=== PATIENT | female | born 1960 | race Caucasian/White ===

== ENCOUNTER → 2016-07-18 | Outpatient (CLI) | payer BC ==
[~2016-07-18] MED LIST: /WARF25TA PO; CALC500T49 PO; COUM2.5T11 PO; FERR325T OR; FOLI1TAB2 PO; MULTTAB26 PO; OMEP20CA3 PO; PERC5TAB6 PO; PERC5TAB8 OR; PERC7.5T8 OR; PERCOCET PO; SERT-141 PO; TYLE325T5 PO; TYLENOL PO; VALT1TAB PO; VITA50003 PO; VITAMIN D2 PO; ZYRT10TA2 PO; [UNRECOGNIZED DRUG - OTHER] PO; [UNRECOGNIZED DRUG - OTHER] PO
--- NOTE | 2016-07-18 15:32 | REPMRS ---
Patient History The patient states she had a clinical breast exam in 11/2015. Patient is postmenopausal. Family history of breast cancer in paternal aunt at age 50 or over and endometrial cancer in maternal aunt at age 50 or over. Digital Woman Screen Mammo: July 18, 2016 - Exam #: [id number] Bilateral CC and MLO view(s) were taken. Technologist: Fadumo Bonilla Technologist Prior study comparison: March 09, 2011, digital bilateral screening mammo performed at [facility]. April 25, 2006, bilateral screening mammogram performed at [facility]. FINDINGS: The breast tissue is almost entirely fat. There has been no change in the appearance of the mammogram from the prior studies. There is no interval development of dominant mass, architectural distortion, or clustered microcalcification typical of malignancy. ASSESSMENT: BI-RADS/ACR category 1 mammogram. Negative. Recommendation Routine screening mammogram of both breasts in 1 year (for women over age 40). This mammogram was interpreted with the aid of an FDA-approved computer-aided dectection system. Electronically Signed By: Rafael Seymour MD 07/18/16 [id number]
== END ==
LOC: M WHC 14:44
PROVIDERS: ATTEND Nurse Practitioner Adult Health
DX: Z12.31 Encounter for screening mammogram for malignant neoplasm of breast (principal)

== ENCOUNTER → 2016-08-29 | Outpatient (CLI) | payer BC ==
[~2016-08-29] MED LIST changes: -COUM2.5T11 PO; +COUM2.5T17 PO; -FOLI1TAB2 PO; +FOLI1TAB4 PO; +PERC5TAB12 PO; -PERC5TAB6 PO; +VITA1CAP40 PO; -VITA50003 PO
--- NOTE | 2016-08-29 12:47 | REP ---
Clinical: Trauma. Fall. Technique: AP and lateral views of the humerus. Findings: There is a nondisplaced fracture involving the greater tuberosity at the humeral head best identified on the AP view. Remainder of the humerus appears intact. Impression: Nondisplaced fracture involving the greater tuberosity of the humeral head. Signed by Cesar Ireland MD 08/29/2016 12:39 P
--- NOTE | 2016-08-29 12:48 | REP ---
Clinical: Trauma. Fall. Technique: Internal rotation, external rotation, and Y view. Findings: No definite acute fracture or dislocation is appreciated. However, subtle nondisplaced injury involving the greater tuberosity best identified on external view cannot be excluded. Correlation is recommended. The acromioclavicular joint is intact the glenoid appears normal. Impression: Cannot exclude subtle nondisplaced fracture involving the greater tuberosity of the proximal humeral head. Signed by Cesar Ireland MD 08/29/2016 12:39 P
== END ==
LOC: M LRY 11:59
PROVIDERS: ATTEND Nurse Practitioner Family
DX: S42.254A Nondisplaced fracture of greater tuberosity of right humerus, initial encounter for closed fracture (principal); X58.XXXA Exposure to other specified factors, initial encounter; Y93.9 Activity, unspecified; Y92.9 Unspecified place or not applicable; Y99.8 Other external cause status

== ENCOUNTER → 2018-07-14 | Outpatient (REF) | payer BC ==
[~2018-07-14] MED LIST changes: -/WARF25TA PO; +COUM1TAB18 PO; +FOLI1TAB11 PO; -FOLI1TAB4 PO; +OXYC1TAB23 PO; -PERCOCET PO; -VITA1CAP40 PO; +VITA50005 PO; +ZYRT10CA5 PO; -ZYRT10TA2 PO
== END ==
LOC: M LAB REF 16:16
PROVIDERS: ATTEND Nurse Practitioner Adult Health
DX: L40.53 Psoriatic spondylitis (principal)

== ENCOUNTER → 2018-09-29 | Outpatient (REF) | payer BC | LOC: M LAB REF 12:34 | PROVIDERS: ATTEND Nurse Practitioner Adult Health | DX: M45.0 Ankylosing spondylitis of multiple sites in spine (principal) ==

== ENCOUNTER → 2019-07-22 | Outpatient (REF) | payer BC ==
[2019-07-22 17:16] LABS: FERRITIN 9 NG/ML (8-252); IRON (FE) 28 UG/DL (50-170); PERCENT SATURATION 6.5 % (13.2-45.0); TOTAL IRON BINDING CAPACITY 432 UG/DL (250-450); TOTAL PROTEIN 7.3 GM/DL (6.4-8.2)
[2019-07-23 11:57] LABS: ALBUMIN 4.28 GM/DL (3.29-5.55); ALBUMIN % 59.4 % (55.8-66.1); ALPHA-1-GLOBULIN % 4.2 % (2.9-4.9); ALPHA-2-GLOBULINS 0.67 GM/DL (0.42-0.99); ALPHA-2-GLOBULINS % 9.3 % (7.1-11.8); BETA-1-GLOBULINS 0.53 GM/DL (0.28-0.60); BETA-1-GLOBULINS % 7.4 % (4.7-7.2); BETA-2-GLOBULINS 0.35 GM/DL (0.19-0.55); BETA-2-GLOBULINS % 4.8 % (3.2-6.5); GAMMA GLOBULIN % 14.9 % (11.1-18.8); GAMMA GLOBULINS 1.07 GM/DL (0.65-1.58)
== END ==
LOC: M LAB REF 16:17
PROVIDERS: ATTEND Nurse Practitioner Adult Health
DX: E87.6 Hypokalemia (principal); D50.9 Iron deficiency anemia, unspecified

== ENCOUNTER 2019-08-26 11:19 | Outpatient (CLI) | payer BC ==
[~2019-08-26] VITALS: Ht 152.4 cm; Wt 95.5 kg
[2019-08-26] VITALS (7 sets, daily range): BP systolic 140–150; BP diastolic 62–78
[2019-08-26] MEDS ORDERED: IRON SUCROSE 25 MG in NS 25 ML IV ONE (12:00)
[2019-08-26] MEDS ORDERED: IRON SUCROSE 475 MG in NS 250 ML IV ONE (13:00)
[2019-09-02] MEDS ORDERED: AMLO1TAB25 PO (14:33)
[2019-09-02] MEDS ORDERED: SERT50TA29 PO (14:33)
[2019-09-02] MEDS ORDERED: METH2.5T48 PO (15:34)
[2019-09-02] MEDS ORDERED: NORV5TAB PO (15:34)
[2019-09-02] MEDS ORDERED: SERT-138 PO (15:34)
[2019-09-02] MEDS ORDERED: SULF1TAB30 PO (15:34)
[2019-09-02] MEDS ORDERED: HYDR12.55 PO (15:34)
[2019-09-02] MEDS ORDERED: HUMI20KI SC (15:34)
[2019-09-02] MEDS ORDERED: VITA500064 PO (15:34)
[2019-09-02] MEDS ORDERED: IBAN150T6 PO (15:34)
[2019-09-02] MEDS ORDERED: IRON27TA2 PO (15:34)
== END 2019-08-26 16:50 | disposition home or self-care (01) ==
LOC: M INFU 11:19
PROVIDERS: ATTEND Nurse Practitioner Adult Health
DX: D50.9 Iron deficiency anemia, unspecified (principal)
CPT/HCPCS: 96365; 96366; 96376; J1756

== ENCOUNTER → 2019-09-04 | Outpatient (CLI) | payer BC ==
[~2019-09-04] MED LIST changes: +AMLO1TAB25 PO; +HUMI20KI SC; +HYDR12.55 PO; +IBAN150T6 PO; +IRON27TA2 PO; +METH2.5T48 PO; +NORV5TAB PO; +SERT-138 PO; +SERT50TA29 PO; +SULF1TAB30 PO; +VITA500064 PO
== END ==
LOC: M LABSMTC 10:43
PROVIDERS: ATTEND Anesthesiology
DX: Z01.818 Encounter for other preprocedural examination (principal); Z11.59 Encounter for screening for other viral diseases
CPT/HCPCS: C9803; U0003

== ENCOUNTER 2019-09-08 11:53 | Day surgery (SDC) | payer BC ==
[~2019-09-08] VITALS: Ht 152.4 cm; Wt 98.3 kg
[~2019-09-08 11:53] MED LIST changes: +AMLO10TA5 PO; -AMLO1TAB25 PO; +LR 1,000 ML IV ONE; +ceFAZolin SOD 2 GM in IV 1 EA IV ONE
[2019-09-08] MEDS ORDERED: dexameTHASONE 10MG/1ML VIAL PRES.FREE (J1100 PER 1MG) ONE (11:54)
[2019-09-08] MEDS ORDERED: EPINEPHrine INJ 1 MG/ML 1ML AMP ONE (11:54)
[2019-09-08] MEDS ORDERED: ROPIvacaine 0.5% 30ML INJECTION (J2795 PER 1MG) ONE (11:54)
[2019-09-08] MEDS ORDERED: MIDAZOLAM INJ 2MG/2ML VIAL (J2250 PER 1MG) As Ordered ONE ×2 (12:52→13:38)
[2019-09-08] MEDS ORDERED: fentaNYL 100 MCG/2 ML INJECTION (J3010) As Ordered ONE (12:52)
[2019-09-08] MEDS ORDERED: fentaNYL 100 MCG/2 ML INJECTION (J3010) IV ONE (13:30)
[2019-09-08] MEDS ORDERED: MIDAZOLAM INJ 2MG/2ML VIAL (J2250 PER 1MG) IV ONE (13:30)
[2019-09-08] MEDS ORDERED: LIDOCAINE 2% 100MG/5ML SDV (FOR ANES.) As Ordered ONE (13:38)
[2019-09-08] MEDS ORDERED: ROCURONIUM BROMIDE 50 MG/5 ML VIAL As Ordered ONE (13:38)
[2019-09-08] MEDS ORDERED: SUGAMMADEX SODIUM 500 MG/5 ML VIAL (BRIDION) As Ordered ONE (13:38)
[2019-09-08] MEDS ORDERED: ONDANSETRON 4MG/2ML VIAL As Ordered ONE (13:38)
[2019-09-08] MEDS ORDERED: fentaNYL 250 MCG/5 ML INJECTION (J3010) As Ordered ONE (13:38)
[2019-09-08] MEDS ORDERED: propofoL 200 MG/20 ML VIAL As Ordered ONE ×2 (13:38→16:16)
[2019-09-08] MEDS ORDERED: dexameTHASONE 4 MG/ML 1ML VIAL (J1100 PER 1MG) As Ordered ONE (13:38)
[2019-09-08] MEDS ORDERED: METOCLOPRAMIDE INJ 10MG/2ML VIAL (J2765 PER 1) As Ordered ONE (13:38)
[2019-09-08] MEDS ORDERED: fentaNYL 100 MCG/2 ML INJECTION (J3010) IV PRN (17:00)
[2019-09-08] MEDS ORDERED: ONDANSETRON 4MG/2ML VIAL IV PRN (17:00)
[2019-09-08] MEDS ORDERED: oxyCODONE 5MG TAB PO PRN (17:00)
[2019-09-08] MEDS ORDERED: LR 1,000 ML IV SCH ×2 (17:00)
[2019-09-08 19:47] VITALS: BP 140/70
--- NOTE | 2019-09-09 03:48 | REP ---
C-ARM VIEWS RIGHT FOOT: Multiple C-arm views right foot performed during placement of metallic plate and screws in the 5th metatarsal. The structures are well aligned. 37 seconds fluoroscopy time utilized. Electronically Signed by Phong Garcia MD 09/09/2019 10:57 P
--- NOTE | 2019-09-15 13:25 | RO ---
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 POSTOPERATIVE DIAGNOSIS: Right 5th metatarsal partial union. PROCEDURES: 1. Right 5th metatarsal open reduction internal fixation. 2. Right calcaneal bone graft. 3. Use of the mini C-arm. SURGEON: Sarah Duran MD ASSIST: JESSICA Alvarez ANESTHESIA: General endotracheal with popliteal nerve block. ESTIMATED BLOOD LOSS: 25 mL. COMPLICATIONS: None. CONDITION: Stable to recovery. 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 Patient was given option for surgery after failing conservative measures. Risks and benefits, include, but are not limited to, infection, damage to nerves and blood vessels, continued pain and stiffness, need for additional procedures. Informed consent was obtained in the office. DESCRIPTION OF PROCEDURE: Patient was met in the post anesthesia care unit (PACU), and the right lower extremity was marked as the correct operative site. She was taken to the operating room, where she was placed in the supine position on the operating room table. Bony prominences were well padded. A well-padded tourniquet was placed on the right upper thigh. Right lower extremity was prepped and draped in the normal sterile fashion. An official time-out was held, where the correct patient, operative site, and operative procedure were verified. Patient received antibiotics within 60 minutes prior to incision. An incision was made over the lateral aspect of the 5th metatarsal. Care was taken to avoid branches of the sural nerve. The 5th metatarsal was approached, found to be some interval adherent healing dorsally and laterally of the 5th metatarsal fracture since the patient's recent x-ray and CT scan. There was, however, a continued gap plantarly. There was no significant gross motion through the fracture site, but all fibrous and abnormal tissue was taken down. Copious irrigation was performed. Attention was then turned to the lateral aspect of the heel. A small incision was made over the lateral tuberosity. Carefully dissection was performed down to the level of the bone, and two to three plugs of bone graft were removed from the calcaneus. This was then placed in the plantar aspect of the fracture site. I then chose with hook plate from the Arthrex 5th metatarsal system. It was secured to the lateral aspect of the bone using a 2.4 mm screw through the hooks. This gave nice placement. I then further secured it with 3-0 locking screws proximally. After checking bone graft placement, I did gain slight compression using the compression hole. Following that, I placed two locking screws distally. Remaining bone graft was then packed in the plantar aspect of the bone and tourniquet was let down. Patient has a history of von Willebrand disease, but did not require DDAVP during her total knee replacement and, thus, it was not used for this smaller procedure. There was mild bleeding, which was controlled with cautery. Finally, soft tissues were closed with #3-0 Vicryl, and skin was closed using #3-0 nylon. A sterile dressing was applied followed by a well-padded splint. Patient was extubated and transferred to the recovery room in stable condition. PLAN: Patient will be non-weightbearing on the right lower extremity. She will be on aspirin for deep venous thrombosis (DVT) prophylaxis. We will see her back in 2 weeks for a splint change and suture removal.
== END 2019-09-08 18:15 | disposition home or self-care (01) ==
LOC: M SDC 11:53
PROVIDERS: ATTEND Orthopaedic Surgery
DX: S92.351K Displaced fracture of fifth metatarsal bone, right foot, subsequent encounter for fracture with nonunion (principal); I10 Essential (primary) hypertension; E78.5 Hyperlipidemia, unspecified; D64.9 Anemia, unspecified; K44.9 Diaphragmatic hernia without obstruction or gangrene; G47.30 Sleep apnea, unspecified; Z92.21 Personal history of antineoplastic chemotherapy; Z79.899 Other long term (current) drug therapy
CPT/HCPCS: 20900; 28322; 64445; 76000; C1713; J0171; J0690; J1100; J2250; J2405; J2765; J2795; J3010

== ENCOUNTER → 2019-11-12 | Outpatient (REF) | payer BC ==
[~2019-11-12] MED LIST changes: -AMLO10TA5 PO; +AMLO1TAB25 PO; -LR 1,000 ML IV ONE; -ceFAZolin SOD 2 GM in IV 1 EA IV ONE
== END ==
LOC: M LAB REF 16:26
PROVIDERS: ATTEND Nurse Practitioner Adult Health
DX: L40.53 Psoriatic spondylitis (principal)

== ENCOUNTER → 2020-08-23 | Outpatient (REF) | payer BC ==
[2020-08-23 18:18] LABS: PERCENT SATURATION 17.2 % (13.2-45.0)
== END ==
LOC: M LAB REF 12:26
PROVIDERS: ATTEND Nurse Practitioner Adult Health
DX: L40.53 Psoriatic spondylitis (principal); D50.9 Iron deficiency anemia, unspecified

== ENCOUNTER 2020-09-22 11:47 | Inpatient (IN) | payer BC ==
[2020-09-22] VITALS (7 sets, daily range): BP systolic 102–127; BP diastolic 56–72
[~2020-09-22] VITALS: Ht 152.4 cm; Wt 96.0 kg
--- NOTE | 2020-09-22 16:35 | REP ---
INDICATION: COVID with hypoxia. COMPARISON: 07/12/2014 the latest prior FINDINGS: The technique utilized in obtaining the radiograph has magnified the cardiac silhouette and accentuated the interstitial markings. The superior mediastinal structures are midline. The cardiac silhouette is unremarkable in size, shape, and position. The diaphragmatic surfaces of the lungs are regular, and the costophrenic angles are clear. Patchy airspace opacities are seen bilaterally throughout the lung parra. The osseous structures are within normal limits. IMPRESSION: Patchy bilateral airspace opacities consistent with pneumonia likely due to the patient's diagnosis of COVID-19. <Electronically signed by Srinath Gautam > 09/22/20 1157
[2020-09-22 16:55] LABS: HEMATOCRIT 33.7 % (36.0-47.0); HEMOGLOBIN 10.3 g/dl (12.0-15.5); MEAN CORPUSCULAR HEMOGLOBIN 25.4 pg (27.0-33.0); MEAN CORPUSCULAR HGB CONC 30.6 g/dl (32.0-36.5); PLATELET COUNT, AUTOMATED 195 10^3/uL (150-450); RED BLOOD COUNT 4.06 10^6/uL (4.00-5.40); WHITE BLOOD COUNT 4.4 10^3/uL (4.0-10.0)
[2020-09-22] MEDS ORDERED: SERT50TA29 PO (16:57)
[2020-09-22 17:09] LABS: ABG BASE EXCESS 0.6 (-2.0-2.0); ABG HCO3 24.8 MEQ/L (22.0-26.0); ABG O2 SATURATION 98.7 % (95.0-99.0); ABG PARTIAL PRESSURE CO2 38.2 mmHg (35.0-45.0); ABG PARTIAL PRESSURE O2 145.6 mmHg (75.0-100.0)
[2020-09-22 17:14] LABS: INR 1.03; PROTHROMBIN TIME 13.7 SECONDS (12.5-14.3)
[2020-09-22 17:15] LABS: PARTIAL THROMBOPLASTIN TIME 34.8 SECONDS (24.2-38.5)
[2020-09-22 17:18] LABS: D-DIMER QUANT 1435.4 ng/ml (<500)
[2020-09-22] MEDS ORDERED: HYDR-3363 PO (17:20)
[2020-09-22] MEDS ORDERED: MELO15TA28 PO (17:20)
[2020-09-22] MEDS ORDERED: HUMI40KI2 SC (17:20)
[2020-09-22] MEDS ORDERED: ALBUTEROL 90 MCG/ACT 8GM HFA INHALER INH PRN (17:20)
[2020-09-22] MEDS ORDERED: POTA10CA32 PO (17:20)
[2020-09-22] MEDS ORDERED: HOME MED LIST COMPLETE! XX SCH (17:25)
[2020-09-22 17:31] LABS: ALBUMIN 2.7 GM/DL (3.2-5.2); ALT/SGPT 30 U/L (12-78); BILIRUBIN,DIRECT 0.1 MG/DL (0.0-0.2); BILIRUBIN,TOTAL 0.3 MG/DL (0.2-1.0); BLOOD UREA NITROGEN 11 MG/DL (7-18); C REACTIVE PROTEIN QUANTITATIV 5.83 MG/DL (0.00-0.30); CALCIUM LEVEL 8.4 MG/DL (8.8-10.2); CARBON DIOXIDE LEVEL 29 MEQ/L (21-32); CHLORIDE LEVEL 108 MEQ/L (98-107); CPK CREATINE PHOSPHOKINASE 353 U/L (26-192); CREATININE FOR GFR 0.83 MG/DL (0.55-1.30); FERRITIN 61 NG/ML (8-252); GLOMERULAR FILTRATION RATE > 60.0 (>45); GLUCOSE, FASTING 105 MG/DL (70-100); LDH LACTATE DEHYDROGENASE 394 U/L (84-246); MAGNESIUM LEVEL 2.5 MG/DL (1.8-2.4); NT-PRO BNP 632 PG/ML (<125); POTASSIUM SERUM 4.5 MEQ/L (3.5-5.1); SODIUM LEVEL 141 MEQ/L (136-145); TOTAL PROTEIN 5.9 GM/DL (6.4-8.2); TROPONIN I < 0.02 NG/ML (< 0.10)
[2020-09-22 17:33] LABS: LYMPHOCYTES 11 % (16-44); MONOCYTES 4 % (0-5); NEUTROPHILS 85 % (28-66); PLATELET ESTIMATE NORMAL (NORMAL)
--- NOTE | 2020-09-22 18:54 | ECGEPIP ---
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 Less ST/T abnormalities now noted Electronically Signed on 09-22-2020 18:54:39 EDT by Naga Carrillo
--- NOTE | 2020-09-22 19:06 | CCN ---
CRITICAL CARE NOTE DATE: 09/22/2020 Dictated by Harlan Casanova DO for Patrick Gonzalez DO, [facility] SUBJECTIVE: The patient is a 60-year-old female who is presenting from [facility] after diagnosis of COVID. HISTORY OF PRESENT ILLNESS: The patient is a 60-year-old female with a past medical history of psoriatic arthritis on Humira, sulfasalazine, and methotrexate and obstructive sleep apnea compliant on CPAP who presents from [facility] after diagnosis of COVID pneumonia. At [facility], she received three days of remdesivir and Decadron. The patient reports that her daughter tested positive for COVID as well. Daughter was vaccinated. The patient has not been COVID vaccinated. The patient reports that she has had blood-tinged sputum for the last two days. She states that her symptoms of shortness of breath and cough originally started about ten days ago. The patient reports a left-sided chest pain associated with the shortness of breath and cough that has been present since the onset of cough. She states that the pain has slightly increased in intensity. She denies any radiation into the left arm or left jaw. She states that she does have some of the chest pain radiating into the epigastric area. She denies any fevers or chills. She reports nausea and vomiting. Denies diarrhea. Denies melena and denies blood in the vomitus. The patient reports that at baseline she is able to ambulate without assistance. The patient denies smoking history. At [facility], she received Tessalon Perles 100 mg as needed every 8 hours, guaifenesin syrup 200 mg as needed every 4 hours, Zofran 4 mg as needed every 6 hours, ipratropium albuterol (DuoNeb) 3 mL three times a day, albuterol nebulizers as needed every 2 hours, dexamethasone 10 mg/mL daily, Lovenox 40 mg daily, remdesivir daily, levofloxacin daily, Zoloft 50 mg daily. The patient was sent over from [place] because while at [place], her oxygen saturation remained in the mid 80s on 15 liters nonrebreather. The patient reported an increase in dyspnea. The patient reports the blood-tinged sputum for the past two days. However, this was not reported on the [facility] notes. The patient denies any smoking history. The patient denies needing oxygen at baseline. Patient able to ambulate without assistance at baseline. The patient reports being afebrile. However, [facility] notes suggest that the patient had fevers with a T-max of 101.2. The patient was also hypotensive on admission to [facility] with blood pressure 94/47. The patient was hypokalemic on admission to [facility] with serum potassium of 2.4. She received 40 mEq of potassium chloride in the ED at [place]. ALLERGIES: No known drug allergies. HOME MEDICATIONS: See below. PAST MEDICAL HISTORY: Psoriatic arthritis, hypertension, Von Willebrand's disease (Von Willebrand's testing in the past has shown negative. However, the patient has been on Lovenox for this disease). FAMILY HISTORY: Mother alive age 90, glaucoma and hypothyroidism. Father age 71 due to pancreatitis. Seven siblings, four brothers, three sisters. All siblings are alive, unable to recall exact ages. Two sisters with hemophilia, one sister with hypertension, and remaining siblings without significant medical history. SOCIAL HISTORY: The patient is a never smoker. She reports occasional alcohol use. No illicit drug use. The patient reports that she lives in a one story with her . She reports there are two steps to get into the home. She denies needing ambulatory assistance at baseline. REVIEW OF SYSTEMS: Constitutional: The patient denies fevers or chills at this time. She denies any recent weight changes. HEENT: The patient denies rhinorrhea. Reports blood-tinged sputum, reports cough for the past ten days. Denies any trauma to the head. Cardiovascular: The patient reports palpitations along with chest pain for the past ten days. She reports that her chest pain has increased in intensity since onset of symptoms ten days ago. Respiratory: The patient reports dyspnea as detailed in the HPI. Genitourinary: The patient denies dysuria at this time. Musculoskeletal: The patient reports fatigue. Gastrointestinal: The patient reports nausea and vomiting leading to decreased appetite, denies melena, denies hematochezia. Neurologic: The patient denies any confusion, loss of coordination. PHYSICAL EXAMINATION: VITAL SIGNS: Temperature is 95.3 oral, pulse 77, respiratory rate 24, blood pressure 120/60, oxygen saturation 97% on 15 liters nonrebreather. GENERAL: Patient appears in moderate distress. She has mildly increased work of breathing. She is able to complete her sentences without stopping. The patient appears older than stated age. HEENT: Oral mucosa dry. Normocephalic, atraumatic, extraocular muscles intact. No nasal discharge appreciated, no tracheal deviation appreciated. CARDIAC: Heart sounds difficult to auscultate due to increased respiratory sounds, however S1, S2 appreciated. No murmurs, rubs or gallops appreciated. LUNGS: Bilateral diffuse crackles appreciated, no rales appreciated. No accessory muscle use appreciated. ABDOMEN: Bowel sounds present. Abdomen soft. Tenderness upon deep palpation of epigastric area. EXTREMITIES: Venous stasis changes appreciated. Bilateral knee replacement scars appreciated. Radial and pedal pulses equal. No cyanosis. No clubbing appreciated. Extremities appropriately warm to touch. NEUROLOGIC: Gross motor/sensation of upper and lower extremities intact. ASSESSMENT AND PLAN: The patient is a 60-year-old female with a past medical history of psoriatic arthritis previously on Humira, sulfasalazine, methotrexate, and history of obstructive sleep apnea compliant on CPAP who presents from [facility] with COVID pneumonia. She has received three days of remdesivir and Decadron at [facility]. 1. Acute respiratory distress secondary to COVID pneumonia: The patient has been transitioned from nonrebreather 15 liters to Vapotherm 40% on which her oxygen saturation decreased to 80%. Therefore the patient was placed on BiPAP. The patient's laboratory studies and chest x-ray reading are pending at this time. The patient is being continued on Decadron and Remdesivir. Since she has received three days' worth of treatment she requires two more days, today and tomorrow. Inflammatory marker and COVID workup have been ordered including PT, PTT, fibrinogen, d-dimer, C-reactive protein, BMP, ferritin, LDH, procalcitonin. Consider adding Tocilizumab if the inflammatory markers continue to be elevated. For DVT prophylaxis the patient is being given 50 mg of Lovenox due to procoagulable state of COVID patient. If the patient continues to have difficulty and continues to have increased inflammatory markers, also consider proning. 2. Chest pain: EKG and troponins have been ordered. 3. GI prophylaxis: Protonix 40 mg twice a day has been ordered. 4. The patient has been placed on isolation precautions. 5. DVT prophylaxis: The patient is being given 50 mg of Lovenox for DVT prophylaxis. My faculty preceptor for this patient encounter was physically present during the encounter and was fully available. All aspects of the patient interview, examination, medical decision making process, and medical care plan development were reviewed and approved by the faculty preceptor. The faculty preceptor is aware and concurs with the plan as stated in the body of this note and will attest to such by his co-signature. Dr. Gonzalez: I examined the patient and participated in the provision of bedside critical care as outlined above. She has received proper treatment for her COVID infection thus far but oxygenation has deteriorated. Her cxr looks like ARDS and she is struggling with oxygen via vapotherm. We will initiate NIPPV and follow gas exchange. Inflammatory markers are pending but she may be a candidate for more targeted anti-inflammatory therapy with Toculizomab. I have reviewed her case with the attending hospitalist and the nursing care team. Goals of care for the evening have been established. Her condition is critical and I have communicated this to her family. Ninety seven minutes was spent in the provision of critical care and coordination. CIARA
[2020-09-22] MEDS: PANTOPRAZOLE 40MG VIAL (C9113 PER 1) IV SCH (21:18)
[2020-09-22] MEDS: ENOXAPARIN 60MG/0.6ML SYRINGE (J1650 PER 10MG) SC SCH (21:18)
[2020-09-22] MEDS: REMDESIVIR 100 MG in NS 250 ML IV SCH (23:01)
[2020-09-23] VITALS (14 sets, daily range): BP systolic 115–138; BP diastolic 58–90
[2020-09-23 05:08] LABS: HEMATOCRIT 31.7 % (36.0-47.0); HEMOGLOBIN 9.7 g/dl (12.0-15.5); MEAN CORPUSCULAR HEMOGLOBIN 25.3 pg (27.0-33.0); MEAN CORPUSCULAR HGB CONC 30.6 g/dl (32.0-36.5); MEAN CORPUSCULAR VOLUME 82.8 fl (80.0-96.0); PLATELET COUNT, AUTOMATED 204 10^3/uL (150-450); RED BLOOD COUNT 3.83 10^6/uL (4.00-5.40); WHITE BLOOD COUNT 6.6 10^3/uL (4.0-10.0)
[2020-09-23 05:33] LABS: BLOOD UREA NITROGEN 14 MG/DL (7-18); CALCIUM LEVEL 7.9 MG/DL (8.8-10.2); CARBON DIOXIDE LEVEL 29 MEQ/L (21-32); CHLORIDE LEVEL 107 MEQ/L (98-107); CREATININE FOR GFR 0.66 MG/DL (0.55-1.30); GLOMERULAR FILTRATION RATE > 60.0 (>45); GLUCOSE, FASTING 81 MG/DL (70-100); MAGNESIUM LEVEL 2.2 MG/DL (1.8-2.4); POTASSIUM SERUM 3.5 MEQ/L (3.5-5.1); SODIUM LEVEL 140 MEQ/L (136-145)
[2020-09-23 05:50] LABS: ATYPICAL LYMPH 1 % (0-5)
[2020-09-23 05:51] LABS: BASOPHILS 1 % (0-1); LYMPHOCYTES 14 % (16-44); MONOCYTES 6 % (0-5); NEUTROPHILS 78 % (28-66)
[2020-09-23 05:52] LABS: PLATELET ESTIMATE NORMAL (NORMAL)
--- NOTE | 2020-09-23 07:18 | HPEPDOC ---
General Date of Admission Sep 22, 2020 at 15:40 Date of Service: Sep 22, 2020 Chief Complaint The patient is a 60-year-old female admitted with a reason for visit of Covid + Hypoxic Respiratory Failure. Source: Patient, RN/MD History of Present Illness 60-year-old female with past medical history of psoriatic arthritis on chronic immunosuppressive therapy with methotrexate and Humira, hypertension, morbid obesity, RACHELL on CPAP, ankylosing spondylitis, anxiety, depression, who initially presented to [facility] ED on 09/19/2020 with complaints of fever cough sore throat generalized body aches for 1 week in the setting of known Covid exposure. Her daughter was tested for COVID-19 on 09/17/2020. Patient did not get a the Covid vaccine due to potential interactions with methotrexate. There patient was initially saturating at 93% on presentation than after admission started requiring 2 L of oxygen. Treatment was started with the Decadron, remdesivir, levofloxacin. This morning patient's oxygenation deteriorated rapidly so the patient was requested to be transferred to [facility]. Patient was transferred to [facility] for acute hypoxic respiratory failure due to COVID-19 pneumonia. Today patient complains of shortness of breath and blood-tinged expectoration. The sputum has become blood-tinged tinged in the last 2 days. She denied any fever or chills. Does complains of some generalized body aches. Home Medications Scheduled Adalimumab (Humira Pen) 40 Mg/0.8 Ml Pen.ij.kit, 40 MG SC Q2WK, (Reported) Amlodipine Besylate (Norvasc) 5 Mg Tablet, 5 MG PO DAILY, (Reported) Folic Acid (Folic Acid) 1 Mg Tab, 1 MG PO DAILY, (Reported) Hydrochlorothiazide (Hydrochlorothiazide) 12.5 Mg Tablet, 12.5 MG PO DAILY, (Reported) Meloxicam (Meloxicam) 15 Mg Tablet, 15 MG PO DAILY, (Reported) NEW MED, PT HAS NOT STARTED YET Methotrexate Sodium (Methotrexate) 2.5 Mg Tablet, 10 MG PO QWEEK, (Reported) Potassium Chloride (Potassium Chloride) 10 Meq Capsule.er, 10 MEQ PO QID, (Reported) Sertraline HCl (Sertraline HCl) 50 Mg Tablet, 75 MG PO DAILY, (Reported) Sulfasalazine (Sulfasalazine) 500 Mg Tablet, 1,000 MG PO BID, (Reported) Scheduled PRN Hydroxyzine HCl (Hydroxyzine HCl) 25 Mg Tablet, 25 MG PO BID PRN for ITCHING, (Reported) Allergies Coded Allergies: No Known Allergies (Unverified , 09/08/19) Past Medical History Medical History Psoriatic arthritis, hypertension, morbid obesity, RACHELL on CPAP, ankylosing spondylitis, anxiety, depression, She also carries a history of von Willebrand disease however the labs in our system do not support it. Surgical History Bilateral knee replacements, left hip replacement, C-sections, right foot surgery Family History Mother alive age 90 has glaucoma and hypothyroidism Father at age 71 due to pancreatitis 2 sisters with hemophilia 1 with hypertension Social History * Smoker: non-smoker Alcohol: rarely Drugs: denies A-FIB/CHADSVASC A-FIB History Current/History of A-Fib/PAF?: No Review of Systems Constitutional: Reports: Weakness, Fatigue; Denies: Chills, Fever, Night Sweats Eyes: Denies: Pain, Vision change ENT: Denies: Head Aches, Ear Pain, Dysphagia Skin: Denies: Rash, Lesions, Breakdown Pulmonary: Reports: Dyspnea, Cough Cardiovascular: Denies: Chest Pain, Palpitations, Orthopnea, Paroxysmal Noc. Dyspnea, Lt Headedness Gastrointestinal: Denies: Nausea, Vomiting, Abdominal Pain, Diarrhea Genitourinary: Denies: Dysuria, Frequency, Incontinence, Retention Hematologic: Denies: Bruising, Bleeding Excessively Neurological: Denies: Weakness, Numbness, Change in speech, Confusion Physical Examination General Exam: Positive: Alert, Cooperative, No Acute Distress Eye Exam: Positive: PERRLA, Conjunctiva & lids normal, EOMI; Negative: Sclera icteric ENT Exam: Positive: Atraumatic, Mucous membr. moist/pink, Pharynx Normal Neck Exam: Positive: Supple; Negative: JVD, thyromegaly Chest Exam: Positive: Normal air movement, Other (Bilateral diffuse crackles); Negative: Rales, Rhonchi, Wheezing Heart Exam: Positive: Rate Normal, Regular Rhythm, Normal S1, Normal S2; Negative: Murmurs, Rubs Abdomen Exam: Positive: Normal bowel sounds, Soft, Hepatospenomegaly; Negative: Tenderness Extremity Exam: Negative: Clubbing, Cyanosis, Edema Neuro Exam: Positive: Normal Speech, Strength at 5/5 X4 ext, Normal Tone Psych Exam: Positive: Memory Intact, Oriented x 3 Vital Signs Vital Signs Label Value Date Time Pulse 77 09/22/20 1600 Respiratory Rate 24 bpm 09/22/20 1600 Blood Pressure Assessment 120/60 (80) 09/22/20 1600 Bedside Pulse Oximetry 97 % 09/22/20 1600 Item Value Date Time Oxygen Delivery Method Non-Rebreather 09/22/20 1600 Oxygen Flow Rate 15.0 L/min 09/22/20 1600 Laboratory Data Labs 24H Laboratory Tests 2 09/22/20 16:36: CBC/BMP Assessment/Plan 60-year-old female with past medical history of psoriatic arthritis on chronic immunosuppressive therapy with methotrexate and Humira, hypertension, morbid obesity, RACHELL on CPAP, ankylosing spondylitis, anxiety, depression, who initially presented to [facility] ED on 09/19/2020 with complaints of fever cough sore throat generalized body aches for 1 week in the setting of known Covid exposure. Her daughter was tested for COVID-19 on 09/17/2020. Patient did not get a the Covid vaccine due to potential interactions with methotrexate. There patient was initially saturating at 93% on presentation than after admission started requiring 2 L of oxygen. Treatment was started with the Decadron, remdesivir, levofloxacin. This morning patient's oxygenation deteriorated rapidly so the patient was requested to be transferred to [facility]. Patient was transferred to [facility] for acute hypoxic respiratory failure due to COVID-19 pneumonia. Acute respiratory failure with hypoxia Due to COVID-19 pneumonia We will give Vapotherm 40 L /100% We will also put her on her CPAP Covid labs ordered Chest x-ray with bilateral diffuse infiltrates consistent with the Covid pneumonia Encourage prone positioning and [id number] positioning mostly when in bed Lovenox 50 units twice daily, PPI twice daily, aspirin We will continue with Decadron and remdesivir Hypertension Continue amlodipine, hold hydrochlorothiazide Psoriatic arthritis, ankylosing spondylitis Will hold methotrexate and other immunomodulator therapy. We will continue sulfasalazine Anxiety depression Continue sertraline Morbid obesity with a BMI of 40.5/RACHELL Continue home CPAP Plan / VTE VTE Prophylaxis Ordered?: Yes ALBERT MCLEOD MD Sep 22, 2020 17:21
[2020-09-23] MEDS: PANTOPRAZOLE 40MG VIAL (C9113 PER 1) IV SCH ×2 (08:03→21:26)
[2020-09-23] MEDS: ENOXAPARIN 60MG/0.6ML SYRINGE (J1650 PER 10MG) SC SCH ×2 (08:03→21:26)
[2020-09-23] MEDS: SERTRALINE HCL 25 MG TABLET PO SCH (08:04)
[2020-09-23] MEDS: ASPIRIN 81MG ENTERIC TABLET PO SCH (08:04)
[2020-09-23] MEDS ORDERED: ONDANSETRON 4MG/2ML VIAL IV PRN (08:30)
[2020-09-23] MEDS: D5W/0.45% SODIUM CHLORIDE 1,000 ML IV SCH ×2 (08:47→21:26)
[2020-09-23] MEDS ORDERED: dexameTHASONE 4 MG/ML 1ML VIAL (J1100 PER 1MG) IV SCH (09:00)
--- NOTE | 2020-09-23 10:25 | IPN ---
PROGRESS NOTE DATE: 09/23/2020 SUBJECTIVE: I attended Miya Argueta here in the Intensive Care Unit. Patient has been examined and chart reviewed and I spoke at length with the nurse at the bedside. He was briefly on BiPAP yesterday but the patient tells me she just had basically a panic attack and could not tolerate it. On Vapotherm she actually had more issues with hypoxemia. She is currently on a re-breather with saturations between 89 and 94%. She has spoken with the nursing staff and wishes to be a DNR/DNI. That is being addressed by Dr. Ana Shane. Currently, she is awake, alert and appropriate. T-max overnight 98.1, blood pressure 150 to 130 systolic, heart rate is generally in the 60s to the 80s with a sinus mechanism, and respiratory rate generally between 25 and 28 without accessory muscle use. Ins and outs midnight to midnight are not accurately recorded. White blood cell count 6.6, hemoglobin 9.7, platelet count of 204,000, 78% segs, no bands. Sodium 140, potassium 3.5, chloride 107, CO2 29, BUN 14, creatinine 0.66. No repeat blood gas. Yesterday, pH was 7.43, pCO2 38 and pO2 of 145.6 on an unknown oxygen flow. OBJECTIVE: As outlined above, she is awake, alert and appropriate. She complains mainly of nausea at the moment. Pupils are reactive, sclera clear. Trachea is in the midline. Chest shows symmetric expansion. Percussion is reasonable. There are some dependent crackles. No convincing egophony or rhonchus. Cardiac exam is generally regular. Peripheral pulses are palpable. No obvious edema. Abdomen is soft with active bowel sounds. No convincing organomegaly or masses. Extremities without cyanosis or clubbing. Neurologic: She is awake, alert and appropriate. Psych: Normal mood and affect. IMPRESSION: 1. Hypoxemia, multifactorial. 2. COVID pneumonia. 3. Obstructive sleep apnea syndrome. 4. Psoriatic arthritis. 5. Hypertension. 6. von Willebrand's disease. RECOMMENDATIONS: At this point, she is on Remdesivir, standard Lovenox and Decadron. She is at the moment holding her own regarding her oxygenation status. I did discuss with her the efficacy of recruitment via CPAP or BiPAP. She is willing to try it again if need be. The main is issue is she usually does a nasal mask at home but will see how we do as she is on CPAP of 8 in the home setting. She is proning when able but currently has significant nausea and therefore is unable to do so. We will try getting her over to an oxygen delivery system that has sufficient humidification as I am more concerned about drying out any secretions she may have and worsening her overall status. She is agreeable to these interventions. As outlined above, she wishes to be a DNR and DNI and this is being addressed by the primary service. She has had a little bit of a drop off in her urine output. IV fluids have been ordered by the primary service as well. At this point we will proceed as outlined above. She is on appropriate therapy. According to her timeline, this about about day 10 to 12 regarding the onset of symptoms. Will proceed as outlined above. Further recommendations will be made in the progress records as new information becomes available. CIARA
[2020-09-23] MEDS: hydrOXYzine 25 MG TAB PO PRN (13:43)
[2020-09-23] MEDS: CHLORASEPTIC SPRAY MT PRN (16:15)
[2020-09-23] MEDS: SALIVA SUBSTITUTE(MOUTHKOTE) BTL MT PRN (16:15)
[2020-09-23] MEDS ORDERED: dexameTHASONE 20MG/5ML VIAL (J1100 PER 1MG) IV ONE (16:40)
[2020-09-23] MEDS: BARICITINIB 2MG TABLET (OLUMIANT) FOR EUA PO SCH (18:37)
[2020-09-23] MEDS: REMDESIVIR 100 MG in NS 250 ML IV SCH (21:27)
[2020-09-23] MEDS: diphenhydrAMINE 50MG/ML VIAL (J1200) IV PRN (21:49)
[2020-09-23] MEDS: SODIUM CHLORIDE 0.9% INJ 10 ML SYR IV SCH (22:41)
--- NOTE | 2020-09-23 23:21 | IPNPDOC ---
Text Note Date of Service The patient was seen on 09/23/20. NOTE Overnight changed her mind and wants to be full code again. New wishes updated in [facility]. VS,Fishbone, I+O VS, Fishbone, I+O Laboratory Tests 09/23/20 04:45 Vital Signs Date Time Temp Pulse Resp B/P (MAP) Pulse Ox O2 Delivery O2 Flow Rate FiO2 09/23/20 18:00 64 30 94 Non-Rebreather 09/23/20 16:04 97.4 124/60 (81) 09/23/20 10:38 95 09/23/20 10:35 15.0 I&O- Last 24 Hours up to 6 AM 09/23/20 06:00 Intake Total 180 ml Output Total 270 ml Balance -90 ml BHASKAR LOCKETT MD Sep 23, 2020 23:21
[2020-09-24] VITALS (7 sets, daily range): BP systolic 111–163; BP diastolic 58–82
[2020-09-24 04:53] LABS: HEMATOCRIT 32.8 % (36.0-47.0); MEAN CORPUSCULAR HEMOGLOBIN 25.3 pg (27.0-33.0); MEAN CORPUSCULAR HGB CONC 30.5 g/dl (32.0-36.5); MEAN CORPUSCULAR VOLUME 82.8 fl (80.0-96.0); PLATELET COUNT, AUTOMATED 257 10^3/uL (150-450); RED BLOOD COUNT 3.96 10^6/uL (4.00-5.40); WHITE BLOOD COUNT 5.8 10^3/uL (4.0-10.0)
[2020-09-24 05:02] LABS: INR 1.09; PARTIAL THROMBOPLASTIN TIME 33.9 SECONDS (25.9-37.0); PROTHROMBIN TIME 14.5 SECONDS (12.7-14.5)
[2020-09-24 05:38] LABS: ANISOCYTOSIS 2+; ATYPICAL LYMPH 1 % (0-5); LYMPHOCYTES 30 % (16-44); MONOCYTES 8 % (0-5); NEUTROPHILS 61 % (28-66); PLATELET ESTIMATE NORMAL (NORMAL); POIKILOCYTOSIS 1+; POLYCHROMASIA 1+
[2020-09-24 05:51] LABS: ALBUMIN 2.6 GM/DL (3.2-5.2); ALT/SGPT 29 U/L (12-78); BILIRUBIN,DIRECT 0.1 MG/DL (0.0-0.2); BILIRUBIN,TOTAL 0.3 MG/DL (0.2-1.0); BLOOD UREA NITROGEN 13 MG/DL (7-18); CALCIUM LEVEL 8.1 MG/DL (8.8-10.2); CARBON DIOXIDE LEVEL 31 MEQ/L (21-32); CHLORIDE LEVEL 106 MEQ/L (98-107); CPK CREATINE PHOSPHOKINASE 146 U/L (26-192); CREATININE FOR GFR 0.69 MG/DL (0.55-1.30); FERRITIN 67 NG/ML (8-252); GLOMERULAR FILTRATION RATE > 60.0 (>45); GLUCOSE, FASTING 111 MG/DL (70-100); LDH LACTATE DEHYDROGENASE 461 U/L (84-246); NT-PRO BNP 1372 PG/ML (<125); POTASSIUM SERUM 3.9 MEQ/L (3.5-5.1); SODIUM LEVEL 142 MEQ/L (136-145); TOTAL PROTEIN 5.8 GM/DL (6.4-8.2); TROPONIN I < 0.02 NG/ML (< 0.10)
--- NOTE | 2020-09-24 07:17 | IPNPDOC ---
Subjective Date Seen The patient was seen on 09/23/20. Subjective Chief Complaint/HPI Continues to be very SOB, saturating only 80% to 85% with non rebreather. refused BIPAP again adn wanted to be DNR and DNI. MOLST form completed. Spoke with clare and discussed the critical condition of the patient. Objective Physical Examination General Exam: Positive: Alert, Cooperative, Mild Distress Eye Exam: Positive: PERRLA, Conjunctiva & lids normal, EOMI; Negative: Sclera icteric ENT Exam: Positive: Atraumatic, Mucous membr. moist/pink, Pharynx Normal Neck Exam: Positive: Supple; Negative: JVD, thyromegaly Chest Exam: Positive: Normal air movement, Other (Bilateral diffuse crackles); Negative: Rales, Rhonchi, Wheezing Heart Exam: Positive: Tachycardic, Regular Rhythm, Normal S1, Normal S2; Negative: Murmurs, Rubs Abdomen Exam: Positive: Normal bowel sounds, Soft; Negative: Tenderness Extremity Exam: Negative: Clubbing, Cyanosis, Edema Neuro Exam: Positive: Normal Speech, Strength at 5/5 X4 ext, Normal Tone Psych Exam: Positive: Memory Intact, Oriented x 3 Assessment /Plan Assessment 60-year-old female with past medical history of psoriatic arthritis on chronic immunosuppressive therapy with methotrexate and Humira, hypertension, morbid obesity, RACHELL on CPAP, ankylosing spondylitis, anxiety, depression, who initially presented to [facility] ED on 09/19/2020 with complaints of fever cough sore throat generalized body aches for 1 week in the setting of known Covid exposure. Her daughter was tested for COVID-19 on 09/17/2020. Patient did not get a the Covid vaccine due to potential interactions with methotrexate. There patient was initially saturating at 93% on presentation than after admission started requiring 2 L of oxygen. Treatment was started with the Decadron, remdesivir, levofloxacin. This morning patient's oxygenation deteriorated rapidly so the patient was requested to be transferred to [facility]. Patient was transferred to [facility] for acute hypoxic respiratory failure due to COVID-19 pneumonia. Acute respiratory failure with hypoxia Due to COVID-19 pneumonia Chest x-ray with bilateral diffuse infiltrates consistent with the Covid pneumonia Decadron increased to 10 mg bid, Encourage prone positioning and bytt-[id number] positioning mostly when in bed Lovenox 50 units twice daily, PPI twice daily, aspirin, remdesivir Added on Baricitinib. Hypertension Continue amlodipine Psoriatic arthritis, ankylosing spondylitis Will hold methotrexate and other immunomodulator therapy. We will continue sulfasalazine Anxiety depression Continue sertraline Morbid obesity with a BMI of 40.5/RACHELL has CPAP at home Plan/VTE VTE Prophylaxis Ordered?: Yes VS, I&O, 24H, Fishbone Vital Signs/I&O Vital Signs Date Time Temp Pulse Resp B/P (MAP) Pulse Ox O2 Delivery O2 Flow Rate FiO2 09/24/20 04:48 72 99 NIPPV (BIPAP/CPAP) 80 09/24/20 03:48 97.0 28 126/60 (82) 09/23/20 10:35 15.0 I&O- Last 24 Hours up to 6 AM 09/24/20 05:59 Intake Total 1305 ml Output Total 975 ml Balance 330 ml Laboratory Data 24H LABS Laboratory Tests 2 09/24/20 04:35: Neutrophils (%) (Auto) , Nucleated Red Blood Cells % (auto) 0.0, Neutrophils 61, Lymphocytes (Manual) 30, Monocytes (Manual) 8H, Atypical Lymphocytes 1, Polych romasia 1+, Poikilocytosis 1+, Anisocytosis 2+, Platelet Estimate NORMAL, Prothrombin Time 14.5H, Prothromb Time International Ratio 1.09, Activated Partial Thromboplast Time 33.9, Fibrinogen 355, Anion Gap 5L, Glomerular Filtration Rate > 60.0, Calcium Level 8.1L, Magnesium Level 2.0, Ferritin 67, Total Bilirubin 0.3, Direct Bilirubin 0.1, Aspartate Amino Transf (AST/SGOT) 39H, Alanine Aminotransferase (ALT/SGPT) 29, Alkaline Phosphatase 51, Lactate Dehydrogenase 461H, Total Creatine Kinase 146, Troponin I < 0.02, AL-Zmp-X-Type Natriuretic Peptide 1372H, Total Protein 5.8L, Albumin 2.6L, Albumin/Globulin Ratio 0.8L CBC/BMP Laboratory Tests 09/24/20 04:35 ALBERT MCLEOD MD Sep 24, 2020 07:17
[2020-09-24] MEDS: ASPIRIN 81MG ENTERIC TABLET PO SCH (08:30)
[2020-09-24] MEDS: PANTOPRAZOLE 40MG VIAL (C9113 PER 1) IV SCH ×2 (08:30→20:59)
[2020-09-24] MEDS: BARICITINIB 2MG TABLET (OLUMIANT) FOR EUA PO SCH (08:30)
[2020-09-24] MEDS: SERTRALINE HCL 25 MG TABLET PO SCH (08:30)
[2020-09-24] MEDS: hydrOXYzine 25 MG TAB PO PRN ×2 (08:30→17:36)
[2020-09-24] MEDS: dexameTHASONE 20MG/5ML VIAL (J1100 PER 1MG) IV SCH ×2 (08:31→20:59)
[2020-09-24] MEDS: CHLORASEPTIC SPRAY MT PRN (08:31)
[2020-09-24] MEDS: ENOXAPARIN 60MG/0.6ML SYRINGE (J1650 PER 10MG) SC SCH ×2 (08:31→20:59)
[2020-09-24] MEDS: SALIVA SUBSTITUTE(MOUTHKOTE) BTL MT PRN (08:31)
--- NOTE | 2020-09-24 10:45 | CCN ---
PULMONARY CRITICAL CARE NOTE DATE: 09/24/2020 SUBJECTIVE: I again attended Miya Argueta here in Intensive Care. Patient has been examined and chart reviewed. I spoke at length with the patient at the bedside as well as her nurse. Last evening she rescinded her DNR and wishes to be full code. She continued to refuse BiPAP last night early on but eventually was agreeable as her saturations were markedly diminished. While on the BiPAP which she was able to stay on all night saturations remained 98-100% with FiO2 only weaned as low as 80% FiO2 but still with saturation at that point of 100%. I had a very lengthy discussion with her this morning regarding all of that. T-max overnight 97, blood pressure 118 to 150, heart rate 50s to the 80s with a sinus mechanism, respiratory rate generally in 20s. White blood cell count 5.8, hemoglobin 10.0, platelet count of 257,000. Sodium 142, potassium 3.9, chloride 109, CO2 31, BUN 13, creatinine 0.69. OBJECTIVE: On exam she is awake, alert and appropriate. Pupils are reactive, sclerae clear. Trachea is in the midline. Chest shows diminished but symmetrical expansion. There are some faint crackles at the bases that do improve with inspiratory effort. No convincing wheezing, egophony or rhonchus. Cardiac exam is distant but regular. Peripheral pulses are palpable. No edema. Abdomen is mildly obese, soft, nontender with active bowel sounds. No convincing organomegaly or masses. Extremities without cyanosis or clubbing. Neurologic: She is awake, alert and appropriate. Psych: Normal mood and affect. IMPRESSION: 1. COVID pneumonia with hypoxemia. 2. Obstructive sleep apnea syndrome. 3. Psoriatic arthritis. 4. Hypertension. 5. von Willebrand's disease. RECOMMENDATIONS: At this point, she is on maximal therapy. We added Baricitinib yesterday. She at least now for the most part is agreeable to wearing noninvasive support and when she wears it actually does very, very well and markedly improved her oxygen saturations. She is actually able to be out of bed to the bedside chair and eating breakfast this morning with high flow aerosol mask in place with saturation of 91%. I discussed with her the absolute need to continue with that if she has any hopes of avoiding formal mechanical ventilatory support. For now we will continue the remainder of her therapy including Remdesivir and Decadron. She is on weight-adjusted Lovenox. Her BNP is marginally elevated but her ins and outs are acceptable. Renal function is good and she has no significant edema and we will monitor that for now. She still remains overall critically ill with high likelihood of further compromise if she refuses to cooperate with care. Further recommendations will be made in the progress records as new information becomes available.
--- NOTE | 2020-09-24 11:00 | IPNPDOC ---
Subjective Date Seen The patient was seen on 09/24/20. Subjective Chief Complaint/HPI Patient reascended DNR / DNI last night. After atarax/ benadryl was able to keep on BIPAP overnight. With BIPAP she maintained 98% saturation with 80% fio2. This am she is in chair with aerosol mask saturating 88% to 92%. continues to have dry cough, dyspnea on minimal exertion, unable to complete full sentences. Objective Physical Examination General Exam: Positive: Alert, Cooperative, Moderate Distress Eye Exam: Positive: PERRLA, Conjunctiva & lids normal, EOMI; Negative: Sclera icteric ENT Exam: Positive: Atraumatic, Mucous membr. moist/pink, Pharynx Normal Neck Exam: Positive: Supple; Negative: JVD, thyromegaly Chest Exam: Positive: Diminished, Other (Bilateral diffuse crackles, tachypneic); Negative: Rales, Rhonchi Heart Exam: Positive: Tachycardic, Regular Rhythm, Normal S1, Normal S2; Negative: Murmurs, Rubs Abdomen Exam: Positive: Normal bowel sounds, Soft; Negative: Tenderness Extremity Exam: Negative: Clubbing, Cyanosis, Edema Neuro Exam: Positive: Normal Speech, Strength at 5/5 X4 ext, Normal Tone Psych Exam: Positive: Memory Intact, Oriented x 3 Assessment /Plan Assessment 60-year-old female with past medical history of psoriatic arthritis on chronic immunosuppressive therapy with methotrexate and Humira, hypertension, morbid obesity, RACHELL on CPAP, ankylosing spondylitis, anxiety, depression, who initially presented to [facility] ED on 09/19/2020 with complaints of fever cough sore throat generalized body aches for 1 week in the setting of known Covid exposure. Her daughter was tested for COVID-19 on 09/17/2020. Patient did not get a the Covid vaccine due to potential interactions with methotrexate. There patient was initially saturating at 93% on presentation than after admission started requiring 2 L of oxygen. Treatment was started with the Decadron, remdesivir, levofloxacin. This morning patient's oxygenation deteriorated rapidly so the patient was requested to be transferred to [facility]. Patient was tra nsferred to [facility] for acute hypoxic respiratory failure due to COVID-19 pneumonia. Acute respiratory failure with hypoxia Due to COVID-19 pneumonia Chest x-ray with bilateral diffuse infiltrates consistent with the Covid pneumonia Decadron increased to 10 mg bid, Encourage prone positioning and [id number] positioning mostly when in bed Lovenox 50 units twice daily, PPI twice daily, aspirin, Remdesivir Added on Baricitinib. Able to tolerate BIPAP with benadryl for anxiety. Hypertension Continue amlodipine Psoriatic arthritis, ankylosing spondylitis Will hold methotrexate and other immunomodulator therapy. Anxiety depression Continue sertraline Morbid obesity with a BMI of 40.5/RACHELL has CPAP at home Plan/VTE VTE Prophylaxis Ordered?: Yes VS, I&O, 24H, [facility] Vital Signs/I&O Vital Signs Date Time Temp Pulse Resp B/P (MAP) Pulse Ox O2 Delivery O2 Flow Rate FiO2 09/24/20 08:30 71 98 Aerosol Mask 10.0 98 09/24/20 07:29 28 118/64 (82) 09/24/20 03:48 97.0 I&O- Last 24 Hours up to 6 AM 09/24/20 06:00 Intake Total 1245 ml Output Total 975 ml Balance 270 ml Laboratory Data 24H LABS Laboratory Tests 2 09/24/20 04:35: Neutrophils (%) (Auto) , Nucleated Red Blood Cells % (auto) 0.0, Neutrophils 61, Lymphocytes (Manual) 30, Monocytes (Manual) 8H, Atypical Lymphocytes 1, Polychr omasia 1+, Poikilocytosis 1+, Anisocytosis 2+, Platelet Estimate NORMAL, Prothrombin Time 14.5H, Prothromb Time International Ratio 1.09, Activated Partial Thromboplast Time 33.9, Fibrinogen 355, Anion Gap 5L, Glomerular Filtration Rate > 60.0, Calcium Level 8.1L, Magnesium Level 2.0, Ferritin 67, T otal Bilirubin 0.3, Direct Bilirubin 0.1, Aspartate Amino Transf (AST/SGOT) 39H, Alanine Aminotransferase (ALT/SGPT) 29, Alkaline Phosphatase 51, Lactate Dehydrogenase 461H, Total Creatine Kinase 146, Troponin I < 0.02, WZ-Ots-L-Type Natriuretic Peptide 1372H, Total Protein 5.8L, Albumin 2.6L, Albumin/Globulin Ratio 0.8L, Procalcitonin <0.05 CBC/BMP Laboratory Tests 09/24/20 04:35 ALBERT MCLEOD MD Sep 24, 2020 11:00
[2020-09-24] MEDS: diphenhydrAMINE 50MG/ML VIAL (J1200) IV PRN ×2 (11:17→17:36)
[2020-09-24] MEDS: D5W/0.45% SODIUM CHLORIDE 1,000 ML IV SCH (11:17)
[2020-09-24] MEDS: REMDESIVIR 100 MG in NS 250 ML IV SCH (22:31)
[2020-09-24] MEDS: SODIUM CHLORIDE 0.9% INJ 10 ML SYR IV SCH (23:49)
[2020-09-25] MEDS: D5W/0.45% SODIUM CHLORIDE 1,000 ML IV SCH ×2 (00:25→12:32)
[2020-09-25] MEDS: hydrOXYzine 25 MG TAB PO PRN ×3 (00:26→21:03)
[2020-09-25] MEDS: diphenhydrAMINE 50MG/ML VIAL (J1200) IV PRN ×3 (00:26→21:03)
[2020-09-25 04:00] VITALS: BP 149/67
[2020-09-25 04:49] LABS: HEMATOCRIT 33.2 % (36.0-47.0); HEMOGLOBIN 10.2 g/dl (12.0-15.5); LYMPH # 1.6 10^3/uL (1.5-5.0); LYMPH % 17.9 % (24.0-44.0); MEAN CORPUSCULAR HEMOGLOBIN 25.4 pg (27.0-33.0); MEAN CORPUSCULAR HGB CONC 30.7 g/dl (32.0-36.5); MEAN CORPUSCULAR VOLUME 82.6 fl (80.0-96.0); MONO # 0.7 10^3/uL (0.0-0.8); NEUTROPHILS # 6.5 10^3/uL (1.5-8.5); NEUTROPHILS % 72.3 % (36.0-66.0); PLATELET COUNT, AUTOMATED 354 10^3/uL (150-450); RED BLOOD COUNT 4.02 10^6/uL (4.00-5.40)
[2020-09-25 05:38] LABS: BLOOD UREA NITROGEN 13 MG/DL (7-18); CALCIUM LEVEL 8.2 MG/DL (8.8-10.2); CARBON DIOXIDE LEVEL 26 MEQ/L (21-32); CHLORIDE LEVEL 110 MEQ/L (98-107); CREATININE FOR GFR 0.61 MG/DL (0.55-1.30); GLOMERULAR FILTRATION RATE > 60.0 (>45); GLUCOSE, FASTING 111 MG/DL (70-100); SODIUM LEVEL 140 MEQ/L (136-145)
[2020-09-25 08:16] VITALS: BP 131/67
[2020-09-25] MEDS: PANTOPRAZOLE 40MG VIAL (C9113 PER 1) IV SCH ×2 (08:18→20:54)
[2020-09-25] MEDS: dexameTHASONE 20MG/5ML VIAL (J1100 PER 1MG) IV SCH ×2 (08:18→20:54)
[2020-09-25] MEDS: ENOXAPARIN 60MG/0.6ML SYRINGE (J1650 PER 10MG) SC SCH ×2 (08:19→20:54)
[2020-09-25] MEDS: SERTRALINE HCL 25 MG TABLET PO SCH (08:20)
[2020-09-25] MEDS: BARICITINIB 2MG TABLET (OLUMIANT) FOR EUA PO SCH (08:20)
[2020-09-25] MEDS: ASPIRIN 81MG ENTERIC TABLET PO SCH (08:20)
--- NOTE | 2020-09-25 10:27 | IPNPDOC ---
Subjective Date Seen The patient was seen on 09/25/20. Subjective Chief Complaint/HPI No change in respiratory status continues to be short of breath on minimal exertion and having conversional dyspnea dyspnea. Was able to use the BiPAP all night. Now on double aerosol mask saturating at about 90%. Objective Physical Examination General Exam: Positive: Alert, Cooperative, Mild Distress Eye Exam: Positive: PERRLA, Conjunctiva & lids normal, EOMI; Negative: Sclera icteric ENT Exam: Positive: Atraumatic, Mucous membr. moist/pink, Pharynx Normal Neck Exam: Positive: Supple; Negative: JVD, thyromegaly Chest Exam: Positive: Diminished, Other (Bilateral diffuse crackles, tachypneic); Negative: Rales, Rhonchi Heart Exam: Positive: Tachycardic, Regular Rhythm, Normal S1, Normal S2; Negative: Murmurs, Rubs Abdomen Exam: Positive: Normal bowel sounds, Soft; Negative: Tenderness Extremity Exam: Negative: Clubbing, Cyanosis, Edema Neuro Exam: Positive: Strength at 5/5 X4 ext, Normal Tone Psych Exam: Positive: Memory Intact, Oriented x 3 Assessment /Plan Assessment 60-year-old female with past medical history of psoriatic arthritis on chronic immunosuppressive therapy with methotrexate and Humira, hypertension, morbid obesity, RACHELL on CPAP, ankylosing spondylitis, anxiety, depression, who initially presented to [facility] ED on 09/19/2020 with complaints of fever cough sore throat generalized body aches for 1 week in the setting of known Covid exposure. Her daughter was tested for COVID-19 on 09/17/2020. Patient did not get a the Covid vaccine due to potential interactions with methotrexate. There patient was initially saturating at 93% on presentation than after admission started requiring 2 L of oxygen. Treatment was started with the Decadron, remdesivir, levofloxacin. This morning patient's oxygenation deteriorated rapidly so the patient was requested to be transferred to [facility]. Patient was transferred to [facility] for acute hypoxic respiratory failure due to COVID-19 pneumonia. Acute respiratory failure with hypoxia Due to COVID-19 pneumonia Chest x-ray with bilateral diffuse infiltrates consistent with the Covid pneumonia Decadron increased to 10 mg bid, Encourage prone positioning and [id number] positioning mostly when in bed Lovenox 50 units twice daily, PPI twice daily, aspirin, Remdesivir Added on Baricitinib. Able to tolerate BIPAP with benadryl /hydroxyzine for anxiety. Hypertension Continue amlodipine Psoriatic arthritis, ankylosing spondylitis Will hold methotrexate and other immunomodulator therapy. Anxiety depression Continue sertraline, benadryl prn, hydroxyzine prn. Morbid obesity with a BMI of 40.5/RACHELL has CPAP at home Plan/VTE VTE Prophylaxis Ordered?: Yes VS, I&O, 24H, Fishbone Vital Signs/I&O Vital Signs Date Time Temp Pulse Resp B/P (MAP) Pulse Ox O2 Delivery O2 Flow Rate FiO2 09/25/20 08:30 69 30 95 Aerosol Mask 98 09/25/20 08:16 97.0 131/67 (88) 09/24/20 14:30 10.0 I&O- Last 24 Hours up to 6 AM 09/25/20 06:00 Intake Total 1690 ml Output Total 1485 ml Balance 205 ml Laboratory Data 24H LABS Laboratory Tests 2 09/25/20 04:26: Immature Granulocyte % (Auto) 1.8, Neutrophils (%) (Auto) 72.3H, Lymphocytes (%) (Auto) 17.9L, Monocytes (%) (Auto) 8.0, Eosinophils (%) (Auto) 0.0, Basophils (%) (Auto) 0.0, Neutrophils # (Auto) 6.5, Lymphocytes # (Auto) 1.6, Monocytes # (Auto) 0.7, Eosinophils # (Auto) 0.0, Basophils # (Auto) 0.0, Nucleated Red Blood Cells % (auto) 0.0, Anion Gap 4L, Glomerular Filtration Rate > 60.0, Calcium Level 8.2L, Magnesium Level 2.0 CBC/BMP Laboratory Tests 09/25/20 04:26 ALBERT MCLEOD MD Sep 25, 2020 10:27
[2020-09-25 12:41] VITALS: BP 166/73
--- NOTE | 2020-09-25 12:43 | CCN ---
PULMONARY CRITICAL CARE PROGRESS NOTE DATE: 09/25/2020 SUBJECTIVE: I again attended Georgina Argueta here in the intensive care unit. Patient has been examined and the chart reviewed. She stayed on the noninvasive support for the vast majority of the night last night, was able to have her FiO2 weaned down to 60-65% while on that. LABORATORY DATA: No new imaging. WBC 9.0, hemoglobin 10.2, platelet count 354,000, 72% segs, no bands. Sodium 140, potassium 4.0, chloride 110, CO2 26, BUN 13, creatinine 0.61, glucose 111. PHYSICAL EXAMINATION: VITAL SIGNS: Maximum temperature (T-max) overnight 97.4, blood pressure 130s to 140s, heart rate generally 60s to 80s, respiratory rate generally in the 20s. INTAKE AND OUTPUT: Midnight to midnight 1690 mL in with 1285 mL out. GENERAL: She is currently on an aerosol face mask at 95% with an SaO2 of 94% even with conversation. She is seated in the bedside chair. HEENT: Pupils react. Sclerae clear. Trachea is midline. Aerosol face mask is in place. CHEST: Shows some fine crackles at the extreme bases, but otherwise air exchange is reasonable. Tactile fremitus is palpable and there is no convincing egophony or other adventitious breath sounds. CARDIAC EXAM: Regular with no gallop. Peripheral pulses palpable. No edema. ABDOMEN: Soft, nontender with active bowel sounds. No convincing organomegaly or masses. EXTREMITIES: Show no cyanosis or clubbing. NEUROLOGIC: She is awake, alert and appropriate. PSYCHIATRIC EXAM: With normal mood and affect. IMPRESSION: 1. Hypoxemic respiratory failure secondary to COVID pneumonia. 2. COVID pneumonia. 3. Obstructive sleep apnea (RACHELL). 4. Psoriatic arthritis. 5. Hypertension. 6. Von Willebrand disease. RECOMMENDATIONS: At this point, she is cooperating more with most of her therapies. She still does not wish to prone. She did better tolerating noninvasive support last night, through the night, and clearly her oxygenation status is markedly improved when she is on it. I had a very lengthy discussion as well with the nurse at the bedside regarding the plans and goals of care today. For now, we will leave her on a liquid high-calorie diet in the form of Ensure Plus or Boost as opposed to solid foot in view of her oxygenation status. I am in agreement with her other therapies. She remains on alternate deep venous thrombosis (DVT) prophylaxis. She remains on her course of Decadron, Remdesivir, Lovenox and her baricitinib. For now, we will continue as outlined above. Her prognosis still remains guarded and there is still a high likelihood of compromise should she continue to resist interventions. The day before yesterday, she rescinded her DO NOT RESUSCITATE (DNR) and she is a FULL CODE. We will proceed as outlined above. Further recommendations will be made in the progress record as new information becomes available.
[2020-09-25 13:29] VITALS: O2SAT 95
[2020-09-25 16:00] VITALS: BP 138/81; O2SAT 90
[2020-09-25 20:00] VITALS: BP 129/62
[2020-09-25] MEDS: SODIUM CHLORIDE 0.9% INJ 10 ML SYR IV SCH (22:16)
[2020-09-26] VITALS (17 sets, daily range): BP systolic 93–170; BP diastolic 56–96
[2020-09-26] MEDS: D5W/0.45% SODIUM CHLORIDE 1,000 ML IV SCH (01:26)
[2020-09-26 04:50] LABS: BASO % 0.2 % (0.0-1.0); HEMATOCRIT 31.7 % (36.0-47.0); HEMOGLOBIN 9.7 g/dl (12.0-15.5); LYMPH % 11.1 % (24.0-44.0); MEAN CORPUSCULAR HEMOGLOBIN 25.1 pg (27.0-33.0); MEAN CORPUSCULAR HGB CONC 30.6 g/dl (32.0-36.5); MEAN CORPUSCULAR VOLUME 81.9 fl (80.0-96.0); MONO # 0.7 10^3/uL (0.0-0.8); MONO % 7.8 % (2.0-8.0); NEUTROPHILS # 6.7 10^3/uL (1.5-8.5); NEUTROPHILS % 78.8 % (36.0-66.0); PLATELET COUNT, AUTOMATED 407 10^3/uL (150-450); RED BLOOD COUNT 3.87 10^6/uL (4.00-5.40); WHITE BLOOD COUNT 8.5 10^3/uL (4.0-10.0)
[2020-09-26 05:01] LABS: INR 1.19; PROTHROMBIN TIME 15.5 SECONDS (12.7-14.5)
[2020-09-26 05:02] LABS: PARTIAL THROMBOPLASTIN TIME 33.7 SECONDS (25.9-37.0)
[2020-09-26 05:27] LABS: ALBUMIN 2.5 GM/DL (3.2-5.2); ALT/SGPT 26 U/L (12-78); BILIRUBIN,DIRECT 0.2 MG/DL (0.0-0.2); BILIRUBIN,TOTAL 0.5 MG/DL (0.2-1.0); BLOOD UREA NITROGEN 12 MG/DL (7-18); CARBON DIOXIDE LEVEL 31 MEQ/L (21-32); CHLORIDE LEVEL 105 MEQ/L (98-107); CPK CREATINE PHOSPHOKINASE 52 U/L (26-192); CREATININE FOR GFR 0.62 MG/DL (0.55-1.30); FERRITIN 69 NG/ML (8-252); GLOMERULAR FILTRATION RATE > 60.0 (>45); GLUCOSE, FASTING 107 MG/DL (70-100); LDH LACTATE DEHYDROGENASE 421 U/L (84-246); MAGNESIUM LEVEL 2.1 MG/DL (1.8-2.4); NT-PRO BNP 1092 PG/ML (<125); POTASSIUM SERUM 3.5 MEQ/L (3.5-5.1); SODIUM LEVEL 140 MEQ/L (136-145); TOTAL PROTEIN 5.7 GM/DL (6.4-8.2); TROPONIN I < 0.02 NG/ML (< 0.10)
[2020-09-26] MEDS: dexameTHASONE 20MG/5ML VIAL (J1100 PER 1MG) IV SCH ×2 (09:08→20:39)
[2020-09-26] MEDS: ASPIRIN 81MG ENTERIC TABLET PO SCH (09:08)
[2020-09-26] MEDS: SERTRALINE HCL 25 MG TABLET PO SCH (09:08)
[2020-09-26] MEDS: PANTOPRAZOLE 40MG VIAL (C9113 PER 1) IV SCH ×2 (09:08→20:38)
[2020-09-26] MEDS: ENOXAPARIN 60MG/0.6ML SYRINGE (J1650 PER 10MG) SC SCH ×2 (09:09→20:39)
[2020-09-26] MEDS: BARICITINIB 2MG TABLET (OLUMIANT) FOR EUA PO SCH (09:10)
--- NOTE | 2020-09-26 10:23 | CCN ---
PULMONARY CRITICAL CARE NOTE DATE: 09/26/2020 SUBJECTIVE: I again attended Georgina Argueta here in the intensive care unit. Patient has been examined and the chart reviewed and I spoke at length with the nurse at the bedside. She has been doing better staying on noninvasive support overnight. She had a mild decline in her oxygen saturations during the night but still did not require more than 60% FiO2 from the BiPAP. She spent most of the night at 55%. Currently she is on high flow aerosol mask with saturation between 90 and 93%. Most recent laboratories show white blood cell count of 8.5, hemoglobin 9.7, platelet count 407,000, 70% segs, no bands. Sodium 140, potassium 3.5, chloride 105, CO2 31, BUN 12, creatinine 0.62, glucose 107. LDH essentially unchanged at 421. BNP minimally down at 1092. Repeat D-dimer is pending. No new imaging. PHYSICAL EXAMINATION: VITAL SIGNS: T-max overnight 97.6, blood pressure 130-160 systolic, respiratory rate generally in the 20s without accessory muscle use. Heart rate generally in the 60s with sinus mechanism. Ins and outs midnight to midnight 1635 mL in, 1375 mL out. GENERAL: She is seated in the bedside chair, awake, alert, appropriate and looks a little stronger today. She does have her aerosol mask in place. She has just finished breakfast. HEENT: Normocephalic, atraumatic. Pupils react. Neck supple. Trachea is midline. CHEST: Shows some fine crackles dependently at the bases that improve with deep inspiration. No other focal adventitious breath sounds identified. CARDIAC: Regular without any gallop. Peripheral pulses palpable. Trace edema. ABDOMEN: Soft with active bowel sounds. No convincing organomegaly or masses. EXTREMITIES: Show no cyanosis or clubbing. NEUROLOGIC: She is awake, alert and appropriate. PSYCHIATRIC: With normal mood and affect. IMPRESSION: 1. Hypoxemic, multifactorial. 2. COVID pneumonia with hypoxemia. 3. RACHELL. 4. Psoriatic arthritis. 5. Hypertension. 6. von Willebrand disease. RECOMMENDATIONS: At this point, she has been much more interactive and tolerant as well as cooperative with her prescribed therapy. She is much less nauseated as well which has been helping. She has done much better keeping her BiPAP mask in place not only for hypoxemia but for her sleep apnea. She is requiring a lower fraction of inspired oxygen during the day which is positive sign as well. We will repeat some of her inflammatory markers. She remains on maximal therapy. Her med list was reviewed. She is on dose suggested Lovenox as well and is on ulcer prophylaxis. At this point will proceed as outlined above. I again had a long discussion with her at the bedside concerning her treatment and therapy. She conveys understanding. We will proceed as outlined above. Further recommendations will be made in the progress record as new information becomes available.
[2020-09-26 10:39] LABS: D-DIMER QUANT 1735.89 ng/ml (<500)
[2020-09-26] MEDS: diphenhydrAMINE 50MG/ML VIAL (J1200) IV PRN (20:38)
[2020-09-26] MEDS: hydrOXYzine 25 MG TAB PO PRN (20:39)
[2020-09-26] MEDS: REMDESIVIR 100 MG in NS 250 ML IV SCH (20:39)
[2020-09-27] VITALS (21 sets, daily range): BP systolic 93–202; BP diastolic 55–117
[2020-09-27 05:07] LABS: BASO % 0.1 % (0.0-1.0); HEMATOCRIT 32.4 % (36.0-47.0); HEMOGLOBIN 10.1 g/dl (12.0-15.5); LYMPH # 0.9 10^3/uL (1.5-5.0); LYMPH % 12.3 % (24.0-44.0); MEAN CORPUSCULAR HEMOGLOBIN 25.7 pg (27.0-33.0); MEAN CORPUSCULAR HGB CONC 31.2 g/dl (32.0-36.5); MEAN CORPUSCULAR VOLUME 82.4 fl (80.0-96.0); MONO # 0.6 10^3/uL (0.0-0.8); MONO % 8.2 % (2.0-8.0); NEUTROPHILS # 5.3 10^3/uL (1.5-8.5); NEUTROPHILS % 75.3 % (36.0-66.0); PLATELET COUNT, AUTOMATED 463 10^3/uL (150-450); RED BLOOD COUNT 3.93 10^6/uL (4.00-5.40); WHITE BLOOD COUNT 7.1 10^3/uL (4.0-10.0)
[2020-09-27 05:23] LABS: BLOOD UREA NITROGEN 14 MG/DL (7-18); CALCIUM LEVEL 8.1 MG/DL (8.8-10.2); CARBON DIOXIDE LEVEL 34 MEQ/L (21-32); CHLORIDE LEVEL 105 MEQ/L (98-107); CREATININE FOR GFR 0.68 MG/DL (0.55-1.30); GLOMERULAR FILTRATION RATE > 60.0 (>45); GLUCOSE, FASTING 103 MG/DL (70-100); MAGNESIUM LEVEL 2.1 MG/DL (1.8-2.4); POTASSIUM SERUM 3.6 MEQ/L (3.5-5.1); SODIUM LEVEL 141 MEQ/L (136-145)
[2020-09-27] MEDS: dexameTHASONE 20MG/5ML VIAL (J1100 PER 1MG) IV SCH ×2 (07:34→20:54)
[2020-09-27] MEDS: ASPIRIN 81MG ENTERIC TABLET PO SCH (07:34)
[2020-09-27] MEDS: FOLIC ACID 1 MG TAB PO SCH (07:35)
[2020-09-27] MEDS: amLODIPine 5 MG TAB PO SCH (07:35)
[2020-09-27] MEDS: SERTRALINE HCL 25 MG TABLET PO SCH (07:36)
[2020-09-27] MEDS: BARICITINIB 2MG TABLET (OLUMIANT) FOR EUA PO SCH (07:37)
[2020-09-27] MEDS: PANTOPRAZOLE 40MG VIAL (C9113 PER 1) IV SCH ×2 (07:37→20:55)
[2020-09-27] MEDS: ENOXAPARIN 60MG/0.6ML SYRINGE (J1650 PER 10MG) SC SCH ×2 (07:38→20:54)
--- NOTE | 2020-09-27 10:49 | CCN ---
PULMONARY CRITICAL CARE NOTE DATE: 09/27/2020 SUBJECTIVE: I again attended Georgina Argueta here in the intensive care unit. Patient has been examined and the chart reviewed and I spoke at length with the nurse at the bedside. She feels stronger this morning. She tolerates her BiPAP at night and spends most of the day now on either Vapotherm or aerosol face mask. T-max overnight 98.0, blood pressure 110-200 systolic, heart rate generally in the 60s and 70s with sinus mechanism, respiratory rate generally in the 20s without accessory muscle use. Ins and outs midnight to midnight 2535 mL in with 2060 mL out. White blood cell count 7.1, hemoglobin 10.1, platelet count 463,000, 75% segs, no bands. Sodium 141, potassium 3.6, chloride 105, CO2 34, BUN 14, creatinine 0.68. Currently saturation 96% on aerosol face mask at 70%. PHYSICAL EXAMINATION: GENERAL: She is awake, alert, appropriate. She is sitting in bedside chair, easily conversant. HEENT: Pupils reactive, sclerae clear. Trachea is midline. Mucous membranes of nose and mouth are moist. CHEST: Shows diminished but symmetric expansion. There are dependent crackles, no convincing egophony, wheeze or rubs. CARDIAC: Regular with no gallop. Peripheral pulses palpable. No edema. ABDOMEN: Soft, nontender with active bowel sounds. No convincing organomegaly or masses. EXTREMITIES: Show no cyanosis or clubbing. NEUROLOGIC: She is awake, alert and appropriate. PSYCHIATRIC: With normal mood and affect. IMPRESSION: 1. 2. COVID pneumonia with hypoxemia. 3. RACHELL. 4. Psoriatic arthritis. 5. Hypertension. 6. von Willebrand disease. RECOMMENDATIONS: At this point will continue her current therapy. She remains on Remdesivir and Baricitinib. Her Decadron for now remains twice daily at 10 mg and I do think it has helped. She remains on dose-suggested Lovenox as well as ulcer prophylaxis. She has no other new complaints. She is participating with physical therapy and says she actually walked around the room and I am told by the nursing staff with much less desaturation than on days previous. She is eating and drinking a little better. At this point we will continue her current regimen. Further recommendations will be made in the progress record as new information becomes available.
--- NOTE | 2020-09-27 14:09 | IPNPDOC ---
Text Note Date of Service The patient was seen on 09/27/20. NOTE Subjective: Patient seen and examined at bedside. No acute overnight events reported. No new medical complaints this morning. Objective: General: NAD, sitting comfortably in chair eating lunch HEENT: NC/AT, EOMI Lungs: speaking easily in full sentences MSK: full ROM in large joints skin: no visible rashes Ext: no edema Neuro: no gross focal deficits Psych: AAOx3 60-year-old female with past medical history of psoriatic arthritis on chronic immunosuppressive therapy with methotrexate and Humira, hypertension, morbid obesity, RACHELL on CPAP, ankylosing spondylitis, anxiety, depression, who initially presented to [facility] ED on 09/19/2020 with complaints of fever cough sore throat generalized body aches for 1 week in the setting of known Covid exposure. Her daughter was tested for COVID-19 on 09/17/2020. Patient did not get a the Covid vaccine due to potential interactions with methotrexate. There patient was initially saturating at 93% on presentation than after admission started requiring 2 L of oxygen. Treatment was started with the Decadron, remdesivir, levofloxacin. This morning patient's oxygenation deteriorated rapidly so the patient was requested to be transferred to [facility]. Patient was transferred to [facility] for acute hypoxic respiratory failure due to COVID-19 pneumonia. #Acute respiratory failure with hypoxia - improving Due to COVID-19 pneumonia Chest x-ray with bilateral diffuse infiltrates consistent with the Covid pneumonia Decadron 10 mg bid, Encourage prone positioning and [id number] positioning mostly when in bed Lovenox 50 units twice daily, PPI twice daily, aspirin, Remdesivir continue Baricitinib. Able to tolerate BIPAP with benadryl /hydroxyzine for anxiety. - pulm c/s appreciated #Hypertension Continue amlodipine #Psoriatic arthritis, ankylosing spondylitis Will hold methotrexate and other immunomodulator therapy. #Anxiety depression Continue sertraline, benadryl prn, hydroxyzine prn. #Morbid obesity with a BMI of 40.5/RACHELL has CPAP at home #DVT prophylaxis - as above - lovenox Disposition: guarded prognosis; pending clinical improvement VS,Fishbone, I+O VS, Fishbone, I+O Laboratory Tests 09/27/20 04:23 Vital Signs Date Time Temp Pulse Resp B/P (MAP) Pulse Ox O2 Delivery O2 Flow Rate FiO2 8/3/21 13:00 75 30 124/76 (92) 92 HVNI-Vapotherm 8.0 70 09/27/20 12:00 98.1 I&O- Last 24 Hours up to 6 AM 09/27/20 06:00 Intake Total 1635 ml Output Total 2005 ml Balance -370 ml MICHAEL TAMEZ MD Sep 27, 2020 14:09
[2020-09-27] MEDS: REMDESIVIR 100 MG in NS 250 ML IV SCH (20:54)
[2020-09-27] MEDS: SODIUM CHLORIDE 0.9% INJ 10 ML SYR IV SCH (21:01)
[2020-09-28] VITALS: BP 142/68
[2020-09-28 04:00] VITALS: BP 154/67
[2020-09-28 05:29] LABS: BASO % 0.1 % (0.0-1.0); HEMATOCRIT 30.6 % (36.0-47.0); HEMOGLOBIN 9.5 g/dl (12.0-15.5); LYMPH # 1.1 10^3/uL (1.5-5.0); LYMPH % 12.4 % (24.0-44.0); MEAN CORPUSCULAR HEMOGLOBIN 25.1 pg (27.0-33.0); MONO # 0.8 10^3/uL (0.0-0.8); MONO % 8.8 % (2.0-8.0); NEUTROPHILS # 6.4 10^3/uL (1.5-8.5); NEUTROPHILS % 74.5 % (36.0-66.0); PLATELET COUNT, AUTOMATED 476 10^3/uL (150-450); RED BLOOD COUNT 3.78 10^6/uL (4.00-5.40); WHITE BLOOD COUNT 8.6 10^3/uL (4.0-10.0)
[2020-09-28 05:39] LABS: INR 1.02; PROTHROMBIN TIME 13.8 SECONDS (12.7-14.5)
[2020-09-28 06:05] LABS: ALBUMIN 2.4 GM/DL (3.2-5.2); ALT/SGPT 22 U/L (12-78); BILIRUBIN,DIRECT 0.3 MG/DL (0.0-0.2); BILIRUBIN,TOTAL 0.4 MG/DL (0.2-1.0); BLOOD UREA NITROGEN 20 MG/DL (7-18); CALCIUM LEVEL 7.7 MG/DL (8.8-10.2); CARBON DIOXIDE LEVEL 29 MEQ/L (21-32); CHLORIDE LEVEL 105 MEQ/L (98-107); CPK CREATINE PHOSPHOKINASE 38 U/L (26-192); CREATININE FOR GFR 0.69 MG/DL (0.55-1.30); FERRITIN 52 NG/ML (8-252); GLOMERULAR FILTRATION RATE > 60.0 (>45); GLUCOSE, FASTING 125 MG/DL (70-100); LDH LACTATE DEHYDROGENASE 351 U/L (84-246); NT-PRO BNP 474 PG/ML (<125); POTASSIUM SERUM 3.4 MEQ/L (3.5-5.1); SODIUM LEVEL 140 MEQ/L (136-145); TOTAL PROTEIN 5.3 GM/DL (6.4-8.2); TROPONIN I < 0.02 NG/ML (< 0.10)
[2020-09-28] MEDS ORDERED: POTASSIUM CHLORIDE 10 MEQ SR TABLET PO ONE (06:30)
[2020-09-28] MEDS: ASPIRIN 81MG ENTERIC TABLET PO SCH (07:12)
[2020-09-28] MEDS: BARICITINIB 2MG TABLET (OLUMIANT) FOR EUA PO SCH (07:12)
[2020-09-28] MEDS: amLODIPine 5 MG TAB PO SCH (07:14)
[2020-09-28] MEDS: FOLIC ACID 1 MG TAB PO SCH (07:14)
[2020-09-28] MEDS: SERTRALINE HCL 25 MG TABLET PO SCH (07:15)
[2020-09-28] MEDS: ENOXAPARIN 60MG/0.6ML SYRINGE (J1650 PER 10MG) SC SCH ×2 (07:15→21:31)
[2020-09-28] MEDS: PANTOPRAZOLE 40MG VIAL (C9113 PER 1) IV SCH ×2 (07:15→21:31)
[2020-09-28] MEDS: dexameTHASONE 20MG/5ML VIAL (J1100 PER 1MG) IV SCH ×2 (07:16→21:32)
[2020-09-28 08:00] VITALS: BP 182/78
--- NOTE | 2020-09-28 09:45 | IPN ---
CRITICAL CARE PROGRESS NOTE DATE: 09/28/2020 SUBJECTIVE: Again, I attended Georgina Argueta here in the intensive care unit. The patient has been examined and chart reviewed, and I spoke at length with the nurse at the bedside. She has required much less FiO2 this morning. Currently on her high-flow mask estimate it will be turned down to 40% FiO2 even while in bed. Temperature maximum overnight 98.9. Blood pressure 140-150 systolic. Heart rate generally in the 50s with a sinus mechanism. The ins and outs [id number]: 1500 mL in with 1370 mL out. Laboratory showed a white blood cell count of 8.6, hemoglobin 9.5, platelet count of 476,000; 74% segs (neutrophils), no bands. Sodium of 140, potassium (K) of 3.4, chloride 105, CO2 of 29, BUN 20, creatinine 0.69, glucose 125. BNP down to 474. Repeat inflammatory markers are pending. OBJECTIVE: On examination, she is awake, alert and appropriate. Actually, lying in the left lateral decubitus position in bed with a saturation reading 99% on 50% FiO2. Pupils are reactive; sclerae clear. Trachea in the midline. Chest, although diminished expansion, it is symmetric. There are some dependent crackles; no convincing rhonchi or other adventitious breath sounds identified. Cardiac exam is generally regular. Peripheral pulses are palpable. No edema. Abdomen soft, obese with active bowel sounds. No convincing organomegaly or masses. Extremities without cyanosis or clubbing. Neurologic: She is awake, alert and appropriate. Psych: Normal mood and affect. No new imaging. IMPRESSION: 1. Cruz virus disease (COVID) pneumonia with hypoxemia. 2. Hypoxemic respiratory failure secondary to the above. 3. Obstructive sleep apnea. 4. Psoriatic arthritis. 5. Hypertension. 6. von Willebrand's disease. RECOMMENDATIONS: At this point, we will continue to wean her FiO2 as able. She does have underlying sleep apnea so she should be maintained on BiPAP for naps and at bedtime. At some point we can get her back over to her home device and I believe she is supposed to be on CPAP at 8 cm of water pressure in the outpatient setting. Medication list has been reviewed. For now, we will continue both the remdesivir and the baricitinib. She remains on Decadron 10 mg twice daily and we can begin to wean that hopefully in the next 24-48 hours if she continues to show stability regarding her oxygen requirements. She is working with physical therapy. Ulcer and deep vein thrombosis (DVT) prophylaxis are in place, and she is on dose-adjusted Lovenox for her COVID protocol. At this point, we will proceed as outlined above. Although she has made progress, her prognosis is guarded. We will proceed as outlined above. Further recommendations will be made in the progress records as new information becomes available.
[2020-09-28 12:00] VITALS: BP 135/97
[2020-09-28 16:00] VITALS: BP_SYST 124; BP_SYST 173; BP_DIAS 68; BP_DIAS 78
[2020-09-28 20:00] VITALS: BP 122/80
[2020-09-28] MEDS: REMDESIVIR 100 MG in NS 250 ML IV SCH (21:31)
[2020-09-28] MEDS: SODIUM CHLORIDE 0.9% INJ 10 ML SYR IV SCH (21:32)
[2020-09-29] VITALS: BP 131/63
[2020-09-29 04:00] VITALS: BP 141/73
[2020-09-29 04:49] LABS: BASO % 0.1 % (0.0-1.0); EOS % 0.1 % (0.0-3.0); HEMATOCRIT 29.8 % (36.0-47.0); HEMOGLOBIN 9.4 g/dl (12.0-15.5); LYMPH # 1.1 10^3/uL (1.5-5.0); LYMPH % 7.9 % (24.0-44.0); MEAN CORPUSCULAR HEMOGLOBIN 25.3 pg (27.0-33.0); MEAN CORPUSCULAR HGB CONC 31.5 g/dl (32.0-36.5); MEAN CORPUSCULAR VOLUME 80.3 fl (80.0-96.0); MONO # 0.8 10^3/uL (0.0-0.8); MONO % 6.3 % (2.0-8.0); NEUTROPHILS % 82.8 % (36.0-66.0); PLATELET COUNT, AUTOMATED 484 10^3/uL (150-450); RED BLOOD COUNT 3.71 10^6/uL (4.00-5.40); WHITE BLOOD COUNT 13.2 10^3/uL (4.0-10.0)
[2020-09-29 05:11] LABS: BLOOD UREA NITROGEN 16 MG/DL (7-18); CALCIUM LEVEL 7.9 MG/DL (8.8-10.2); CARBON DIOXIDE LEVEL 29 MEQ/L (21-32); CHLORIDE LEVEL 107 MEQ/L (98-107); CREATININE FOR GFR 0.69 MG/DL (0.55-1.30); GLOMERULAR FILTRATION RATE > 60.0 (>45); GLUCOSE, FASTING 138 MG/DL (70-100); MAGNESIUM LEVEL 1.9 MG/DL (1.8-2.4); POTASSIUM SERUM 3.5 MEQ/L (3.5-5.1); SODIUM LEVEL 142 MEQ/L (136-145)
[2020-09-29 08:01] VITALS: BP 164/76
[2020-09-29] MEDS: ASPIRIN 81MG ENTERIC TABLET PO SCH (08:29)
[2020-09-29] MEDS: FOLIC ACID 1 MG TAB PO SCH (08:29)
[2020-09-29] MEDS: BARICITINIB 2MG TABLET (OLUMIANT) FOR EUA PO SCH (08:29)
[2020-09-29] MEDS: ENOXAPARIN 60MG/0.6ML SYRINGE (J1650 PER 10MG) SC SCH ×2 (08:29→20:35)
[2020-09-29] MEDS: dexameTHASONE 20MG/5ML VIAL (J1100 PER 1MG) IV SCH (08:29)
[2020-09-29] MEDS: SERTRALINE HCL 25 MG TABLET PO SCH (08:30)
[2020-09-29] MEDS: PANTOPRAZOLE 40MG VIAL (C9113 PER 1) IV SCH ×2 (08:30→20:34)
[2020-09-29] MEDS: amLODIPine 5 MG TAB PO SCH (08:30)
--- NOTE | 2020-09-29 08:57 | IPNPDOC ---
Text Note Date of Service The patient was seen on 09/28/20. NOTE Subjective: Patient seen and examined at bedside. No acute overnight events reported. No new medical complaints this morning. Objective: General: NAD, lying comfortably in bed HEENT: NC/AT, EOMI Lungs: speaking easily in full sentences, no accessory muscle use MSK: full ROM in large joints skin: no visible rashes Ext: no edema Neuro: no gross focal deficits Psych: AAOx3 60-year-old female with past medical history of psoriatic arthritis on chronic immunosuppressive therapy with methotrexate and Humira, hypertension, morbid obesity, RACHELL on CPAP, ankylosing spondylitis, anxiety, depression, who initially presented to [facility] ED on 09/19/2020 with complaints of fever cough sore throat generalized body aches for 1 week in the setting of known Covid exposure. Her daughter was tested for COVID-19 on 09/17/2020. Patient did not get a the Covid vaccine due to potential interactions with methotrexate. There patient was initially saturating at 93% on presentation than after admission started requiring 2 L of oxygen. Treatment was started with the Decadron, rem desivir, levofloxacin. This morning patient's oxygenation deteriorated rapidly so the patient was requested to be transferred to [facility] [place]. Patient was transferred to [facility] [place] for acute hypoxic respiratory failure due to COVID-19 pneumonia. #Acute respiratory failure with hypoxia - continues to improve Due to COVID-19 pneumonia Chest x-ray with bilateral diffuse infiltrates consistent with the Covid pneumo suzie Decadron 10 mg bid, Encourage prone positioning and ldlv-[id number]-[id number] positioning mostly when in bed Lovenox 50 units twice daily, PPI twice daily, aspirin, Remdesivir continue Baricitinib. Able to tolerate BIPAP with benadryl /hydroxyzine for anxiety. - pulm c/s appreciated #Hypertension Continue amlodipine #Psoriatic arthritis, ankylosing spondylitis Will hold methotrexate and other immunomodulator therapy. #Anxiety depression Continue sertraline, benadryl prn, hydroxyzine prn. #Morbid obesity with a BMI of 40.5/RACHELL has CPAP at home #DVT prophylaxis - as above - lovenox Disposition: pending clinical improvement VS,Fishbone, I+O VS, Fishbone, I+O Laboratory Tests 09/29/20 04:25 Vital Signs Date Time Temp Pulse Resp B/P (MAP) Pulse Ox O2 Delivery O2 Flow Rate FiO2 09/29/20 08:30 65 164/76 09/29/20 04:00 2.0 09/29/20 04:00 98.6 30 91 Nasal Cannula 09/29/20 00:00 50 I&O- Last 24 Hours up to 6 AM 09/29/20 06:00 Intake Total 2030 ml Output Total 700 ml Balance 1330 ml MICHAEL TAMEZ MD Sep 29, 2020 08:57
--- NOTE | 2020-09-29 09:00 | IPNPDOC ---
Text Note Date of Service The patient was seen on 09/29/20. NOTE Subjective: Patient seen and examined at bedside. No acute overnight events reported. No new medical complaints this morning. States she is feeling much better, ambulating OK. Objective: General: NAD, sitting up comfortably in bed HEENT: NC/AT, EOMI Lungs: speaking easily in full sentences, no accessory muscle use MSK: full ROM in large joints skin: no visible rashes Ext: no edema Neuro: no gross focal deficits Psych: AAOx3 60-year-old female with PMHx including psoriatic arthritis on chronic immunosuppressive therapy with MTX and Humira, HTN, morbid obesity, RACHELL/CPAP or BiPAP?, ankylosing spondylitis, anxiety, depression, who initially presented to [facility] ED on 09/19/2020 with complaints of fever cough sore throat generalized body aches for 1 week in the setting of known Covid exposure. Her daughter was tested for COVID-19 on 09/17/2020. Patient did not get a the Covid vaccine due to potential interactions with methotrexate. There patient was initially saturating at 93% on presentation than after admission started requiring 2 L of oxygen. Treatment was started with the Decadron, remdesivir, levofloxacin. Patient's oxygenation deteriorated rapidly, patient was transferred to [facility] for acute hypoxic respiratory failure due to COVID-19 pneumonia. #Acute respiratory failure with hypoxia - continues to improve - saturating well on supplemental oxygen via nasal cannula Due to COVID-19 pneumonia Chest x-ray with bilateral diffuse infiltrates consistent with the Covid pneumonia Decadron 10 mg bid, Lovenox 50 units twice daily, PPI twice daily, aspirin, Remdesivir continue Baricitinib. Able to tolerate BIPAP with benadryl /hydroxyzine for anxiety. - pulm c/s appreciated #Hypertension Continue amlodipine #Psoriatic arthritis, ankylosing spondylitis Will hold methotrexate and other immunomodulator therapy. #Anxiety depression Continue sertraline, benadryl prn, hydroxyzine prn. #Morbid obesity with a BMI of 40.5/RACHELL has CPAP at home #DVT prophylaxis - as above - lovenox Disposition: pending clinical improvement; transfer to [facility]; continue PT, titrate O2; anticipate d/c in 24-48 hours, likely with supplemental oxygen VS,Fishbone, I+O VS, Fishbone, I+O Laboratory Tests 09/29/20 04:25 Vital Signs Date Time Temp Pulse Resp B/P (MAP) Pulse Ox O2 Delivery O2 Flow Rate FiO2 09/29/20 08:30 65 164/76 09/29/20 04:00 2.0 09/29/20 04:00 98.6 30 91 Nasal Cannula 09/29/20 00:00 50 I&O- Last 24 Hours up to 6 AM 09/29/20 06:00 Intake Total 2030 ml Output Total 700 ml Balance 1330 ml MICHAEL TAMEZ MD Sep 29, 2020 09:00
--- NOTE | 2020-09-29 09:46 | IPN ---
PROGRESS NOTE DATE: 09/29/2020 SUBJECTIVE: I again attended Georgina Argueta here in the Intensive Care Unit, patient has been examined and chart reviewed and I have spoken with the nurse at the bedside. She is able to be on standard nasal cannula this morning while eating. Oxygen saturations remains 91 to 93% on 2 or 3 liters nasal cannula. She is quite comfortable and conversant. T-max overnight 98.6, blood pressure 130s to 160s, heart rate generally in the 60s and 70s with a sinus mechanism, respiratory rate generally in the 20s without accessory muscle use. Ins and outs midnight to midnight: 2130 ml in with only 700 ml recorded out. Laboratories shows a sodium of 142, K 3.5, chloride 107, CO2 29, BUN 16, creatinine 0.69, glucose of 138. White blood cell count 13.2, hemoglobin 9.4, platelet count 484,000. Repeat inflammatory markers are not drawn today. OBJECTIVE: GENERAL: She is seated comfortably in bed. She is conversant. She is awake, alert and appropriate. HEENT: Pupils reactive, sclera are clear. Trachea is in the midline. She does have some mild irritation of her mucous membranes consistent with her current status. LUNGS: Chest is diminished but reasonably symmetric expansion. There are some faint dependent crackles that improve with inspiratory effort. No other focal adventitious breath sounds are identified. CARDIAC: Regular with no gallop. Peripheral pulses are palpable. No evidence of edema. ABDOMEN: Obese, soft, nontender with active bowel sounds. No convincing organomegaly or masses. EXTREMITIES: No cyanosis or clubbing. NEUROLOGIC: She is awake, alert and appropriate. PSYCHIATRIC: She has a normal mood and affect. IMPRESSION: 1. Hypoxemia, multifactorial. 2. Coronavirus/COVID pneumonia. 3. RACHELL. 4. Osteoarthritis. 5. von Willebrand's disease. 6. Hypertension. RECOMMENDATIONS: At this point we will change her over to her own CPAP for her sleep apnea. Certainly, this will continue with recruitment regarding her COVID pneumonia. She prefers to try the nasal pillows which she uses at home and I think this is not at all unreasonable. We will begin to taper her steroids slowly. Will drop them by 20% today. Given her current status, I will allow her out of the ICU to step down to PCU with the above interventions. She remains on ulcer, DVT prophylaxis and dose adjusted Lovenox under the COVID protocol. She is working with Physical Therapy and Occupational Therapy. She appears to be eating reasonably well with reasonable caloric intake. She has no complaints of constipation. At this point, we will proceed as outlined above. She is to continue her current medication regimen and her list has been reviewed and she will continue the full course of her Remdesivir and Baricitinib. Further recommendations will be made in the progress records as new information becomes available.
[2020-09-29 12:00] VITALS: BP 118/74
[2020-09-29 13:10] VITALS: O2SAT 91
[2020-09-29 20:00] VITALS: BP 100/57
[2020-09-29] MEDS: dexameTHASONE 4 MG/ML 1ML VIAL (J1100 PER 1MG) IV SCH (20:34)
[2020-09-29] MEDS: SODIUM CHLORIDE 0.9% INJ 10 ML SYR IV SCH (20:35)
[2020-09-29] MEDS: REMDESIVIR 100 MG in NS 250 ML IV SCH (20:35)
[2020-09-30] VITALS: BP 123/62
[2020-09-30 04:00] VITALS: BP 156/80
[2020-09-30 08:00] VITALS: BP 133/93
[2020-09-30] MEDS: FOLIC ACID 1 MG TAB PO SCH (09:24)
[2020-09-30 09:25] VITALS: BP 133/93
[2020-09-30] MEDS: ASPIRIN 81MG ENTERIC TABLET PO SCH (09:25)
[2020-09-30] MEDS: amLODIPine 5 MG TAB PO SCH (09:25)
[2020-09-30] MEDS: BARICITINIB 2MG TABLET (OLUMIANT) FOR EUA PO SCH (09:31)
[2020-09-30] MEDS: PANTOPRAZOLE 40MG VIAL (C9113 PER 1) IV SCH (09:32)
[2020-09-30] MEDS: dexameTHASONE 4 MG/ML 1ML VIAL (J1100 PER 1MG) IV SCH (09:32)
[2020-09-30] MEDS: ENOXAPARIN 60MG/0.6ML SYRINGE (J1650 PER 10MG) SC SCH (09:32)
--- NOTE | 2020-09-30 11:59 | IPNPDOC ---
Subjective Date Seen The patient was seen on 09/30/20. Pulmonary/ICU follow-up progress note. Subjective Chief Complaint/HPI Patient tolerated use of BiPAP last night without any supplemental oxygen. She maintained her oxygen saturation. She denies of fever chills, shortness of breath, cough. General: Denies: Chills, Fatigue Constitutional: Denies: Fever, Night Sweats ENT: Denies: Sinus Congestion, Post Nasal Drip, Sore Throat Skin: Denies: Rash Pulmonary: Denies: Dyspnea, Cough Cardiovascular: Denies: Chest Pain, Orthopnea Gastrointestinal: Denies: Nausea, Vomiting, Abdominal Pain, Diarrhea Neurological: Denies: Weakness, Numbness Psych: Denies: Anxiety, Depression Objective Physical Examination General Exam: Positive: Alert, Cooperative, No Acute Distress Eye Exam: Positive: PERRLA, Conjunctiva & lids normal; Negative: Sclera icteric ENT Exam: Positive: Atraumatic, Mucous membr. moist/pink, Pharynx Normal Neck Exam: Positive: Supple; Negative: JVD, thyromegaly Chest Exam: Positive: Normal air movement, Rhonchi (Crackle most prominent in the right lung base.), Other; Negative: Rales, Wheezing Heart Exam: Positive: Rate Normal, Regular Rhythm, Normal S1, Normal S2; Negative: Murmurs, Rubs Abdomen Exam: Positive: Normal bowel sounds, Soft, Hepatospenomegaly; Negative: Tenderness Extremity Exam: Negative: Clubbing, Cyanosis, Edema Neuro Exam: Positive: Normal Speech, Strength at 5/5 X4 ext, Normal Tone Psych Exam: Positive: Memory Intact, Oriented x 3 Assessment /Plan Assessment 60-year-old female with past medical history of psoriatic arthritis on chronic immunosuppressive therapy with methotrexate and Humira, hypertension, morbid obesity, RACHELL on CPAP, ankylosing spondylitis, anxiety, depression, who is currently admitted to the hospital with hypoxic respiratory failure secondary to COVID-19 ARDS requiring BiPAP. 1. Hypoxic respiratory failure 2. COVID-19 ARDS 3. History is of multiple rheumatological condition on immunosuppressive therapy 4. RACHELL on CPAP 5. Anxiety and depression Plan/VTE VTE Prophylaxis Ordered?: Yes Plan 1. Recommend to continue with remdesivir, Decadron, and barcitinib. 2. Wean supplemental oxygen to target oxygen saturation above 90%. 3. Recommend self proning if able. 4. Continue to hold immunosuppressive therapy until she can see her rheumatology doctor. 5. Continue CPAP for RACHELL nightly and as needed. Disposition Anticipate discharge in few days. VS, I&O, 24H, Fishbone Vital Signs/I&O Vital Signs Date Time Temp Pulse Resp B/P (MAP) Pulse Ox O2 Delivery O2 Flow Rate FiO2 09/30/20 09:25 77 133/93 09/30/20 08:00 97.5 18 93 NIPPV (BIPAP/CPAP) 4.0 09/29/20 00:00 50 I&O- Last 24 Hours up to 6 AM 09/30/20 06:00 Intake Total 1520 ml Output Total 875 ml Balance 645 ml DUDLEY MYRICK MD Sep 30, 2020 11:59
[2020-09-30 12:00] VITALS: BP 138/64
[2020-09-30] MEDS ORDERED: DECA4TAB PO (12:43)
[2020-09-30] MEDS: SERTRALINE HCL 25 MG TABLET PO SCH (14:00)
--- NOTE | 2020-09-30 17:17 | DS.PDOC ---
Discharge Summary General Date of Admission Sep 22, 2020 at 15:40 Date of Discharge 09/30/20 Specialist/Consultants Involve pulmonology Discharge Summary PROCEDURES PERFORMED DURING STAY: [None]. DISCHARGE DIAGNOSES: #COVID pneumonia Secondary Diagnoses: #Hypertension #Psoriatic arthritis, ankylosing spondylitis #Anxiety depression #Morbid obesity with a BMI of 40.5/RACHELL #RACHELL on CPAP COMPLICATIONS/CHIEF COMPLAINT: Covid + Hypoxic Respiratory Failure. HPI/Hospital Course: 60-year-old female with past medical history of psoriatic arthritis on chronic immunosuppressive therapy with methotrexate and Humira, hypertension, morbid obesity, RACHELL on CPAP, ankylosing spondylitis, anxiety, depression, who initially presented to [facility] ED on 09/19/2020 with complaints of fever cough sore throat generalized body aches for 1 week in the setting of known Covid exposure. Her daughter was tested for COVID-19 on 09/17/2020. Patient did not get a the Covid vaccine due to potential interactions with methotrexate. The patient was initially saturating at 93% on presentation than after admission started requiring 2 L of oxygen. Treatment was started with Decadron, remdesivir, levofloxacin. patient's oxygenation deteriorated rapidly so the patient was requested to be transferred to [facility]. Patient was transferred to [facility] for acute hypoxic respiratory failure due to COVID-19 pneumonia. She was quite hypoxic during the early part of her hospital stay requiring up to 55 L/m of supplemental high flow oxygen.. She was treated with high-dose steroids, Remdesivir and Baricitinib. . She has a history of psoriatic arthritis on chronic immunosuppressive therapy with methotrexate and Humira, which was held during her hospital stay. These medications were held on discharge pending follow up with her senior mechanical engineer and PCP, pending full resolution of her infection. She is discharged home with a steroid taper, and supplemental oxygen to maintain oxygen saturation >90%. DISCHARGE MEDICATIONS: Please see below. ALLERGIES: Please see below. PHYSICAL EXAMINATION ON DISCHARGE: General: NAD, lying comfortably in bed HEENT: NC/AT, EOMI Lungs: CTA B/L, O2 sats 87% on room air at rest, recovers to 92% with 2L Heart: +S1S2, RRR Abd: soft, NT, +BS Ext: no edema Neuro: no gross focal deficits Psych: AAOx3 LABORATORY DATA: Please see below. DISPOSITION: Discharge home with services DISCHARGE INSTRUCTIONS: 1. PCP in 3-5 days 2. Bookkeepers Supervisor in 3-7 days 3. Hold MTX, Humira 4. Supplemental oxygen as needed to maintain O2 sats >90% DISCHARGE CONDITION: [Stable]. TIME SPENT ON DISCHARGE: 55 minutes. Vital Signs/I&Os Vital Signs Date Time Temp Pulse Resp B/P (MAP) Pulse Ox O2 Delivery O2 Flow Rate FiO2 09/30/20 12:00 97.6 63 18 138/64 (88) 92 Nasal Cannula 2.0 09/29/20 00:00 50 I&O- Last 24 Hours up to 6 AM 09/30/20 06:00 Intake Total 1520 ml Output Total 875 ml Balance 645 ml Discharge Medications Scheduled Amlodipine Besylate (Norvasc) 5 Mg Tablet, 5 MG PO DAILY, (Reported) Dexamethasone (Decadron) 4 Mg Tablet, 4 MG PO BID 2 tablets twice daily for 2 days, then one tablet twice daily for 5 days, then one tablet once daily for 5 days, then stop Folic Acid (Folic Acid) 1 Mg Tab, 1 MG PO DAILY, (Reported) Hydrochlorothiazide (Hydrochlorothiazide) 12.5 Mg Tablet, 12.5 MG PO DAILY, (Reported) Meloxicam (Meloxicam) 15 Mg Tablet, 15 MG PO DAILY, (Reported) NEW MED, PT HAS NOT STARTED YET Potassium Chloride (Potassium Chloride) 10 Meq Capsule.er, 10 MEQ PO QID, (Reported) Sertraline HCl (Sertraline HCl) 50 Mg Tablet, 75 MG PO DAILY, (Reported) Sulfasalazine (Sulfasalazine) 500 Mg Tablet, 1,000 MG PO BID, (Reported) Scheduled PRN Hydroxyzine HCl (Hydroxyzine HCl) 25 Mg Tablet, 25 MG PO BID PRN for ITCHING, (Reported) Allergies Coded Allergies: No Known Allergies (Unverified , 09/08/19) MICHAEL TAMEZ MD Sep 30, 2020 17:17
== END 2020-09-30 14:55 | disposition home health service (06) | DRG 133 ==
LOC: EEVIPCON 15:40 → M ICU 15:40 → M 4MAIN 09-29 10:47
PROVIDERS: ADMIT Family Medicine; ATTEND Internal Medicine
PROC: XW033E5 Introduction of Remdesivir Anti-infective into Peripheral Vein, Percutaneous Approach, New Technology Group 5 (ICD-10-PCS; principal; 2020-09-22)
PROC: 3E0333Z Introduction of Anti-inflammatory into Peripheral Vein, Percutaneous Approach (ICD-10-PCS; 2020-09-22)
DX: J96.01 Acute respiratory failure with hypoxia (principal); J12.82 Pneumonia due to coronavirus disease 2019; U07.1 COVID-19; D68.0 Von Willebrand disease; L40.50 Arthropathic psoriasis, unspecified; E66.01 Morbid (severe) obesity due to excess calories; M45.9 Ankylosing spondylitis of unspecified sites in spine; I10 Essential (primary) hypertension; G47.33 Obstructive sleep apnea (adult) (pediatric); F41.9 Anxiety disorder, unspecified; F32.9 Major depressive disorder, single episode, unspecified; Z68.41 Body mass index [BMI] 40.0-44.9, adult; Z96.653 Presence of artificial knee joint, bilateral; Z96.642 Presence of left artificial hip joint; Z79.899 Other long term (current) drug therapy

== ENCOUNTER → 2020-10-20 | Outpatient (REF) | payer BC ==
[~2020-10-20] MED LIST changes: +DECA4TAB PO; +HUMI40KI2 SC; +HYDR-3363 PO; +MELO15TA28 PO; +POTA10CA32 PO
== END ==
LOC: M LAB REF 17:05
PROVIDERS: ATTEND Nurse Practitioner Adult Health
DX: R79.82 Elevated C-reactive protein (CRP) (principal)

== ENCOUNTER → 2021-01-02 | Outpatient (CLI) | payer BC ==
[2021-01-02 15:51] LABS: BASO # 0.1 10^3/uL (0.0-0.2); BASO % 1.1 % (0.0-1.0); EOS # 0.1 10^3/uL (0.0-0.5); HEMATOCRIT 34.1 % (36.0-47.0); HEMOGLOBIN 9.9 g/dl (12.0-15.5); LYMPH % 37.4 % (24.0-44.0); MEAN CORPUSCULAR VOLUME 86.1 fl (80.0-96.0); MONO # 0.7 10^3/uL (0.0-0.8); MONO % 13.2 % (2.0-8.0); NEUTROPHILS # 2.5 10^3/uL (1.5-8.5); NEUTROPHILS % 46.1 % (36.0-66.0); PLATELET COUNT, AUTOMATED 346 10^3/uL (150-450); RED BLOOD COUNT 3.96 10^6/uL (4.00-5.40); WHITE BLOOD COUNT 5.4 10^3/uL (4.0-10.0)
[2021-01-02 16:15] LABS: COLLAGEN EPINEPHRINE 97 SECONDS (74-162)
[2021-01-02 16:21] LABS: BLOOD UREA NITROGEN 10 MG/DL (7-18); CALCIUM LEVEL 9.3 MG/DL (8.8-10.2); CARBON DIOXIDE LEVEL 32 MEQ/L (21-32); CHLORIDE LEVEL 105 MEQ/L (98-107); CREATININE FOR GFR 0.79 MG/DL (0.55-1.30); GLOMERULAR FILTRATION RATE > 60.0 (>45); GLUCOSE, FASTING 80 MG/DL (70-100); POTASSIUM SERUM 3.5 MEQ/L (3.5-5.1); SODIUM LEVEL 142 MEQ/L (136-145)
== END ==
LOC: M LAB 14:28
PROVIDERS: ATTEND Internal Medicine
DX: Z01.810 Encounter for preprocedural cardiovascular examination (principal)

== ENCOUNTER → 2021-09-22 | Outpatient (REF) | payer BC ==
[2021-09-22 13:29] LABS: C REACTIVE PROTEIN QUANTITATIV 0.54 MG/DL (0.00-0.30); PERCENT SATURATION 2.9 % (13.2-45.0)
[2021-09-22 13:54] LABS: FOLATE 3.5 NG/ML
== END ==
LOC: M LAB REF 12:44
PROVIDERS: ATTEND Nurse Practitioner Adult Health
DX: D50.9 Iron deficiency anemia, unspecified (principal); L40.50 Arthropathic psoriasis, unspecified; R20.0 Anesthesia of skin

== ENCOUNTER → 2024-10-09 | Outpatient (REF) | payer BC ==
[~2024-10-09] MED LIST changes: +IBAN150T10 PO; -IBAN150T6 PO; -POTA10CA32 PO; +POTA10CA70 PO; -VITA500064 PO; +VITA500065 PO
[2024-10-09 13:02] LABS: IRON (FE) 133.0 UG/DL (50-170); PERCENT SATURATION 43.3 % (13.2-45.0)
== END ==
LOC: M LAB REF 11:51
PROVIDERS: ATTEND Nurse Practitioner Family
DX: D50.9 Iron deficiency anemia, unspecified (principal)